=== PATIENT | female | born 1945 | race Caucasian/White ===

== ENCOUNTER → 2019-07-25 11:34 | Outpatient (CLI) | payer MEDICARE, MEDICAID, SELFPAY | PROVIDERS: Visit Provider Internal Medicine Adolescent Medicine | DX: Z20.828 Contact with and (suspected) exposure to other viral communicable diseases (principal) | CPT/HCPCS: 87275; 87276 ==

== ENCOUNTER 2021-01-02 14:00 | Inpatient (IN) | payer MEDICAID, MEDICARE, SELFPAY ==
[2021-01-02] VITALS (17 sets, daily range): BP systolic 72–115; BP diastolic 40–69; PULSE 69–97; RESP 17–20; TEMP 36.6–36.8; O2SAT 84–100; BMI 29.9; BMI 26.0
--- NOTE | 2021-01-02 14:15 | XR_ITS ---
PROCEDURE: XR CHEST PORTABLE CLINICAL HISTORY: cough COMPARISON: Injury FINDINGS: The cardiomediastinal silhouette and pulmonary vascularity are within normal limits. There are old appearing bilateral rib fractures. No lobar consolidation or collapse. No evidence of pneumothorax. No acute bony abnormalities. IMPRESSION: No acute findings. Dictated by: Alphonse Allen MD 01/02/2021 15:13 Alphonse Allen MD in [facility] 01/02/2021 15:13
--- NOTE | 2021-01-02 14:15 | CT_ITS ---
PROCEDURE: CT HEAD/BRAIN WO CON CLINICAL INDICATION: Weakness COMPARISON: CT HDWO CT HEAD WITHOUT CONTRAST from 07/14/2012 TECHNIQUE: Axial images obtained. All CT scans at the facility use one or more dose reduction, viz: automated exposure control, ma/kV adjustment per patient size (including targeted exams where dose is matched to indication, i.e. head), or iterative reconstruction technique. FINDINGS: No midline shift, mass effect, intracranial hemorrhage, hydrocephalus, or extra-axial fluid collection is evident. There is generalized atrophy with hypoattenuation of the periventricular white matter consistent with microangiopathic changes. The calvarium has an unremarkable appearance. There is opacification of the right mastoid sinus in the epitympanic recess. No paranasal sinus air-fluid level. IMPRESSION: 1. No acute intracranial findings. 2. Opacified right mastoid sinus suggesting underlying mastoiditis Dictated by: Alphonse Allen MD 01/02/2021 15:00 Alphonse Allen MD in [facility] 01/02/2021 15:00
--- NOTE | 2021-01-02 14:15 | XR_ITS ---
PROCEDURE: XR PELVIS 1-2V CLINICAL INDICATION: fall Pain COMPARISON: No exams were available for comparison TECHNIQUE: XR Pelvis AP View FINDINGS: No fracture or dislocation is evident. No significant degenerative change. No lytic or blastic change. IMPRESSION: No acute findings. Dictated by: Alphonse Allen MD 01/02/2021 15:12 Alphonse Allen MD in [facility] 01/02/2021 15:12
--- NOTE | 2021-01-02 14:45 | PC.NURSE ---
pt with rad
--- NOTE | 2021-01-02 14:49 | HMH.EDWEAK ---
ED Disposition Clinical Impression: Acute kidney injury Sepsis Qualifiers: Sepsis type: sepsis due to unspecified organism Sepsis acute organ dysfunction status: with acute organ dysfunction Severe sepsis acute organ dysfunction type: acute renal failure Acute renal failure type: with acute renal cortical necrosis Severe sepsis shock status: without septic shock Qualified Code(s): A41.9 - Sepsis, unspecified organism; R65.20 - Severe sepsis without septic shock; N17.1 - Acute kidney failure with acute cortical necrosis UTI (urinary tract infection) Qualifiers: Urinary tract infection type: acute cystitis Hematuria presence: with hematuria Qualified Code(s): N30.01 - Acute cystitis with hematuria Altered mental status Qualifiers: Altered mental status type: disorientation Qualified Code(s): R41.0 - Disorientation, unspecified Disposition: Admitted As Inpatient Condition on Discharge: Fair Referrals: Provider,Referral, MD [Primary Care Provider] - - Critical Care Critical Care Time: No Attestation: On 01/02/21, the high probability of a clinically significant, sudden or life threatening deterioration of the following system(s) required my full and direct attention, intervention and personal management. The time I documented below is in addition to time spent performing reported procedures but includes the following listed in this critical care notation. Medical Decision Making - Medical Records Medical records reviewed: Yes: I reviewed the patient's medical records. - Michael Inquiry Pt receiving controlled substance: No Vital Signs: 01/02/21 14:02 01/02/21 14:05 01/02/21 14:31 Temperature 98.1 F Temperature Source Oral Pulse Rate 90 84 Pulse Rate [Left Radial] 97 H Respiratory Rate 18 Blood Pressure 99/57 L 84/48 L Blood Pressure [Right Arm] 94/69 L Blood Pressure Mean 68 60 Blood Pressure Mean [Right Arm] 77 Blood Pressure Source [Right Arm] Automatic Cuff Blood Pressure Position [Right Arm] Sitting 02 Sat by Pulse Oximetry 84 L 97 98 Oxygen Delivery Method Room Air 01/02/21 15:00 01/02/21 15:30 01/02/21 16:01 Temperature Temperature Source Pulse Rate 88 84 80 Pulse Rate [Left Radial] Respiratory Rate Blood Pressure 93/59 L 72/44 L 106/54 L Blood Pressure [Right Arm] Blood Pressure Mean 70 53 71 Blood Pressure Mean [Right Arm] Blood Pressure Source [Right Arm] Blood Pressure Position [Right Arm] 02 Sat by Pulse Oximetry 99 98 100 Oxygen Delivery Method 01/02/21 16:37 01/02/21 16:51 01/02/21 17:07 Temperature Temperature Source Pulse Rate 69 73 72 Pulse Rate [Left Radial] Respiratory Rate Blood Pressure 77/52 L 83/40 L 85/55 L Blood Pressure [Right Arm] Blood Pressure Mean 58 54 65 Blood Pressure Mean [Right Arm] Blood Pressure Source [Right Arm] Blood Pressure Position [Right Arm] 02 Sat by Pulse Oximetry 100 100 100 Oxygen Delivery Method 01/02/21 17:30 01/02/21 18:00 01/02/21 18:18 Temperature Temperature Source Pulse Rate 71 76 79 Pulse Rate [Left Radial] Respiratory Rate Blood Pressure 86/51 L 82/51 L 107/59 L Blood Pressure [Right Arm] Blood Pressure Mean 60 56 75 Blood Pressure Mean [Right Arm] Blood Pressure Source [Right Arm] Blood Pressure Position [Right Arm] 02 Sat by Pulse Oximetry 100 100 100 Oxygen Delivery Method - Lab Data Lab Results 01/02/21 14:15: Specimen Source Right radial, O2 % 21%, ABG pH 7.39, ABG pCO2 49.5 H, ABG pO2 155.9 H, ABG HCO3 29.5 H, ABG Total CO2 31.0 H, ABG O2 Saturation 99, ABG Base Excess 4.6 H, Alphonse Test Acceptable 01/02/21 15:00: WBC 28.8 H*, RBC 3.55 L, Hgb 10.0 L, Hct 30.9 L, MCV 87.0, MCH 28.1, MCHC 32.3, RDW 14.7, Plt Count 536 H, MPV 7.2 L, Neut % (Auto) 82.5 H, Lymph % (Auto) 9.3 L, [place] % (Auto) 7.7, Eos % (Auto) 0.3, Baso % (Auto) 0.2, Neut # (Auto) 23.8 H, Lymph # (Auto) 2.7, [place] # (Auto) 2.2 H, Eos # (Auto) 0.1, Baso
[2021-01-02 14:55] LABS: ABG Base Excess 4.6 mmol/L (-2.4-2.3); ABG HCO3 29.5 mmhg (22.0-26.0); ABG Oxygen Saturation 99 % (90-100); ABG PCO2 49.5 mmhg (35.0-45.0); ABG PH 7.39 mmol/L (7.35-7.45); ABG PO2 155.9 mmhg (80-100)
[2021-01-02 14:57] LABS: Oxygen 21% %
[2021-01-02 14:58] LABS: Allen's Test Acceptable; Source Right Radial
[2021-01-02 15:22] LABS: Basophils # 0.1 K/mm3 (0-0.2); Basophils % 0.2 % (0.1-2.0); Chloride 93 mmol/L (98-107); Eosinophils # 0.1 K/mm3 (0.0-0.4); Eosinophils % 0.3 % (0.1-12.0); Hematocrit 30.9 % (37.0-47.0); Lymphocytes # 2.7 K/mm3 (0.7-4.5); Lymphocytes % 9.3 % (10-50); Mean Corpuscular HGB Conc 32.3 g/dL (31.8-35.4); Mean Corpuscular Hemoglobin 28.1 pg (27.0-31.2); Mean Platelet Volume 7.2 fl (7.4-10.4); Monocytes # 2.2 K/mm3 (0.1-1.0); Monocytes % 7.7 % (1.7-9.3); Neutrophils # 23.8 K/mm3 (1.8-7.8); Neutrophils % 82.5 % (37.0-80.0); Platelet Count 536 K/mm3 (142-424); Red Blood Count 3.55 M/mm3 (4.20-5.40); Red Cell Distribution Width 14.7 % (11.5-17.5); White Blood Count 28.8 K/mm3 (4.8-10.8)
[2021-01-02 15:23] LABS: Potassium 3.2 mmoL/L (3.5-5.1); Sodium 134 mmol/L (136-145)
[2021-01-02 15:25] LABS: Alanine Aminotransferase 67 U/L (12-78); Alkaline Phosphatase 132 U/L (38-126); Anion Gap 12.2 mEq/L (5-15); Aspartate Amino Transferase 55 U/L (14-36); Bilirubin,Total 0.3 mg/dl (0.2-1.3); Blood Urea Nitrogen 17 mg/dl (7-17); Carbon Dioxide 32 mmol/L (22.0-30.0); Creatinine Clearance Estimated 55 mL/min (50-200); Estimated Glomerular Filt Rate 48 ml/min (>60); GFR (African American) 58 ML/MIN (>60)
[2021-01-02 15:26] LABS: Albumin Level 3.2 g/dl (3.5-5.0); Albumin/Globulin Ratio 0.8 (1.1-1.8); Calcium 8.8 mg/dl (8.4-10.2); Globulin 3.9 g/dL (1.3-3.2); Glucose 126 mg/dl (74-100); Total Protein,Serum 7.1 g/dl (6.3-8.2)
[2021-01-02 15:30] LABS: MANUAL DIFFERENTIAL MANUAL DIFFERENTIAL (MANUAL DIFF)
[2021-01-02 15:35] LABS: NT Pro Brain Natriuretic Pep. 1620 pg/mL (0-450)
--- NOTE | 2021-01-02 15:46 | ECG_ITS ---
APPROVED REPORT Exam: Resting ECG HR:83 bpm ECG Measurements Heart Rate 83 AXES RI 198 P 49 QRSd 90 QRS -1 QT 382 T 31 QTc 448 Conclusion Normal sinus rhythm Minimal voltage criteria for LVH, may be normal variant Septal infarct, age undetermined Abnormal ECG Electronically signed by : Win Hopkins MD 01/04/2021 11:48:44
--- NOTE | 2021-01-02 15:46 | HMH.PHACONS ---
- Pharmacy Consult Date: 01/02/21 Time: 15:46 Referring provider: DR. HARMON Reason for Consult:: VANCOMYCIN DOSING Allergies and ADEs:: Allergies Allergy/AdvReac Type Severity Reaction Status Date / Time ANESTHESIA Allergy Unknown FEELS FUNNY Uncoded 05/07/17 14:42 LISINOPRIL Allergy Unknown UNKNOWN Uncoded 05/07/17 14:42 SPAGHETTI SAUCE Allergy Unknown Unknown Uncoded 01/02/21 15:42 allergy reaction Home Medications:: Home Medications Medication Instructions Recorded Confirmed Type ALPRAZolam [Alprazolam 0.25mg 0.25 mg PO BID 01/02/21 01/02/21 History Tab] Atorvastatin Calcium [Lipitor 20mg 20 mg PO HS 01/02/21 01/02/21 History Tab] Cefdinir [Omnicef 300mg Capsule] 300 mg pe PO BID 01/02/21 01/02/21 History Divalproex Sodium [Depakote 250mg 250 mg PO TID 01/02/21 01/02/21 History (Extended-Release) Tablet] Docusate Calcium 240 mg PO DAILY 01/02/21 01/02/21 History Levothyroxine Sodium 75 mcg PO DAILY 01/02/21 01/02/21 History [Levothyroxine] Losartan Potassium 100 mg PO DAILY 01/02/21 01/02/21 History Memantine HCl/Donepezil HCl 1 each PO DAILY 01/02/21 01/02/21 History [Namzaric 28 mg-10 mg Capsule] Mirtazapine 7.5 mg PO HS 01/02/21 01/02/21 History Multivitamin 1 each PO DAILY 01/02/21 01/02/21 History Multivitamin [Multi-Vitamin Plain] 1 each PO DAILY 01/02/21 01/02/21 History Omeprazole [Omeprazole 20mg 20 mg PO DAILY 01/02/21 01/02/21 History Capsule] Omeprazole [Omeprazole 20mg 20 mg PO HS 01/02/21 01/02/21 History Capsule] Ondansetron [Zofran 4mg ODT] 4 mg PO TIDP PRN 01/02/21 01/02/21 History Sertraline HCl 150 mg PO DAILY 01/02/21 01/02/21 History Sertraline HCl [Zoloft 100mg 100 mg PO DAILY 01/02/21 01/02/21 History tablet] Sertraline HCl [Zoloft 50mg tablet] 50 mg PO DAILY 01/02/21 01/02/21 History Height: 1.65 m Weight: 81.647 kg Laboratory Results:: Laboratory Results - last 24 hr 01/02/21 14:15: Specimen Source Right radial, O2 % 21%, ABG pH 7.39, ABG pCO2 49.5 H, ABG pO2 155.9 H, ABG HCO3 29.5 H, ABG Total CO2 31.0 H, ABG O2 Saturation 99, ABG Base Excess 4.6 H, Alphonse Test Acceptable 01/02/21 15:00: WBC 28.8 H*, RBC 3.55 L, Hgb 10.0 L, Hct 30.9 L, MCV 87.0, MCH 28.1, MCHC 32.3, RDW 14.7, Plt Count 536 H, MPV 7.2 L, Neut % (Auto) 82.5 H, Lymph % (Auto) 9.3 L, [place] % (Auto) 7.7, Eos % (Auto) 0.3, Baso % (Auto) 0.2, Neut # (Auto) 23.8 H, Lymph # (Auto) 2.7, [place] # (Auto) 2.2 H, Eos # (Auto) 0.1, Baso # (Auto) 0.1 01/02/21 15:00: Sodium 134 L, Potassium 3.2 L, Chloride 93 L, Carbon Dioxide 32 H, Anion Gap 12.2, BUN 17, Creatinine 1.10 H, Estimated Creat Clear 55, Estimated GFR 48 L, Est GFR ( Amer) 58 L, Glucose 126 H, Calcium 8.8, Total Bilirubin 0.3, AST 55 H, ALT 67, Alkaline Phosphatase 132 H, NT-Pro-B Natriuret Pep 1620 H, Total Protein 7.1, Albumin 3.2 L, Globulin 3.9 H, Albumin/Globulin Ratio 0.8 L Assessment and Plan - Assessment and plan all Dx Assessment and Plan for all problems:: Pharmacokinetic dosing service Objective: Patient: Floor: Age: 75 yo Serum creatinine: 1.10 mg/dL Height: 65.0 Inches Weight (kg): 81.6 Assessment: IBW (kg): 57.00 Dosing wt(kg): 81.6 Estimated Creatinine clearance (ml/min): 38.5 CRCL method: Cockcroft and Gault using ibw(default). Drug selected: Vancomycin Loading dose (mg): Vd (liters): 57.1 (factor used: 0.7 L/kg) Franco (hr-1): 0.036 Half life (hrs): 19.25 CLvanco=?? 2.056 L/hr Recommended dose: 1250 mg Interval: 24 hrs Infusion time (hrs): 2.0 Predicted peak (mcg/mL): 36.5 Predicted trough (mcg/mL): 16.53 Total body weight is being used for vancomycin dosing. Recommendations: Give Vancomycin 1250 mg q 24 hrs with an expected Cpeak of 36.5 mcg/ml and an expected Ctrough of
[2021-01-02 15:54] LABS: Troponin I < 0.01 ng/ml (0.00-0.034)
[2021-01-02 16:01] LABS: Coronavirus 19, PCR Not Detected (NotDetected); Influenza A, PCR Not Detected (NotDetected); Influenza B, PCR Not Detected (NotDetected)
[2021-01-02 16:15] LABS: Lactic Acid 8.9 mmol/L (0.7-2.1)
--- NOTE | 2021-01-02 16:15 | PC.NURSE ---
Critical lactic notified to
[2021-01-02 16:36] LABS: Lymphocytes % 10 % (10-50); Monocytes % 11 % (2-9); Neutrophils % 78 % (42-76); Total Cells Counted 100
[2021-01-02 16:37] LABS: Anisocytosis 1+; Hypochromasia 1+; Platelet Estimate Normal
[2021-01-02 16:41] LABS: Microscopic, Urine URINE MICROSCOPIC (MICROSCOPIC)
[2021-01-02 16:43] LABS: Appearance,Urine SL CLOUDY (Clear); Bilirubin,Urine Negative (Negative); Blood, Urine 1+ (Negative); Color,Urine YELLOW (Yellow); Glucose,Urine (UA) Negative (Negative); Ketones,Urine 1+ (Negative); Leukocyte Esterase,Urine 1+ (Negative); Nitrate,Urine Negative (Negative); Protein,Urine Negative (Negative); Urobilinogen,Urine 0.2 EU/dl (0.2)
[2021-01-02 16:58] LABS: Bacteria,Urine 3+ /lpf
--- NOTE | 2021-01-02 18:27 | PC.NURSE ---
Pt bp improved at this time. MD states to have levophed at bs but to hold starting to recheck bp and see if it stays at the present reading.
--- NOTE | 2021-01-02 18:50 | PC.NURSE ---
BED ASSIGNMENT REQUESTED, ROOM 208 ALL STAFF NOTIFIED
[2021-01-02 18:59] LABS: Troponin I < 0.01 ng/ml (0.00-0.034)
[2021-01-02 20:02] LABS: Reflex Lactic Add Lactic Reflex
--- NOTE | 2021-01-02 20:26 | HMH.SEPSISRE ---
H Tissue Perfusion Eval Sepsis Re-Evaluation Performed: Yes Date Performed: 01/02/21 Time Performed: 20:00
[2021-01-02 21:07] LABS: Troponin I < 0.01 ng/ml (0.00-0.034)
--- NOTE | 2021-01-02 21:15 | PC.NURSE ---
patient up to floor via stretcher.
[2021-01-02 21:52] LABS: Lactic Acid Follow Up (RFLX 1) 0.7 mmol/L (0.7-2.1)
[2021-01-03] VITALS (13 sets, daily range): BP systolic 90–125; BP diastolic 49–67; PULSE 66–89; RESP 16–20; TEMP 36.4–37; O2SAT 94–100; BMI 26.9
--- NOTE | 2021-01-03 03:17 | PC.NURSE ---
She is alert to her name and birthday. She is L[place]. Continues on 4LPM n/c. NSR on telemetry. Voiding per dilcia.
[2021-01-03 06:52] LABS: Chloride 98 mmol/L (98-107); Potassium 3.3 mmoL/L (3.5-5.1); Sodium 136 mmol/L (136-145)
[2021-01-03 06:53] LABS: Basophils % 0.1 % (0.1-2.0); Eosinophils # 0.1 K/mm3 (0.0-0.4); Eosinophils % 0.3 % (0.1-12.0); Hematocrit 27.6 % (37.0-47.0); Lymphocytes # 1.8 K/mm3 (0.7-4.5); Lymphocytes % 10.5 % (10-50); Mean Corpuscular HGB Conc 31.5 g/dL (31.8-35.4); Mean Corpuscular Hemoglobin 28.1 pg (27.0-31.2); Mean Corpuscular Volume 89.4 fl (81-99); Mean Platelet Volume 7.4 fl (7.4-10.4); Monocytes # 1.4 K/mm3 (0.1-1.0); Monocytes % 8.1 % (1.7-9.3); Neutrophils # 13.7 K/mm3 (1.8-7.8); Neutrophils % 80.9 % (37.0-80.0); Platelet Count 460 K/mm3 (142-424); Red Blood Count 3.09 M/mm3 (4.20-5.40); White Blood Count 16.9 K/mm3 (4.8-10.8)
[2021-01-03 06:54] LABS: MANUAL DIFFERENTIAL MANUAL DIFFERENTIAL (MANUAL DIFF)
[2021-01-03 06:55] LABS: Alanine Aminotransferase 59 U/L (12-78); Albumin Level 2.7 g/dl (3.5-5.0); Albumin/Globulin Ratio 0.8 (1.1-1.8); Alkaline Phosphatase 102 U/L (38-126); Anion Gap 9.3 mEq/L (5-15); Aspartate Amino Transferase 65 U/L (14-36); Bilirubin,Total 0.2 mg/dl (0.2-1.3); Blood Urea Nitrogen 16 mg/dl (7-17); Carbon Dioxide 32 mmol/L (22.0-30.0); Creatinine Clearance Estimated 54 mL/min (50-200); Estimated Glomerular Filt Rate 70 ml/min (>60); GFR (African American) 84 ML/MIN (>60); Globulin 3.5 g/dL (1.3-3.2); Total Protein,Serum 6.2 g/dl (6.3-8.2)
[2021-01-03 06:56] LABS: Calcium 8.5 mg/dl (8.4-10.2); Glucose 110 mg/dl (74-100)
--- NOTE | 2021-01-03 07:37 | HMH.HP ---
*Admission Date: 01/02/21 *Chief complaint: encephalopathy *History of present illness: Ms. Quintana is a 75-year-old female sent to the emergency department [facility]. She has a long history of dementia, along with other chronic comorbidities (see history that follows). She was sent from her jail due to worsening confusion from baseline over the past several days. Per ER documentation she had been refusing to get out of bed. Apparently they found her on the floor earlier yesterday. There was no witnessed fall. Patient did not complain of any pain anywhere. However the nursing staff states that she has been more confused than normal. When EMS initially arrived, she was slightly hypoxic, however did place her on some nasal cannula oxygen which improved rapidly. She denies any chest pain or shortness of breath. No chest pain or or palpitations. Denies any headache or change in vision. No focal weakness. No fevers or chills. No abdominal pain or vomiting. On assessment this morning, she appears more alert. Is answering questions appropriately. Appears to be hard of hearing. Complaining of some mild nausea and abdominal discomfort. States she has not pooped since yesterday. Afebrile and hemodynamically stable this morning. [facility] History I have reviewed the patient's past medical history: Yes Medical History: Denies:: Cancer, Diabetes Mellitus Type 1, Diabetes Mellitus Type 2, MRSA *Have you ever received a pneumonia vaccine?: Yes *Have you received a flu vaccine this season?: No Other Medical History: Reports: Hypothyroidism Other Surgeries: Yes: No Previous Surgery Amputation: No - *Social History Smoking Status: Unknown if ever smoked Alcohol Intake: never *Occupational Status:: retired Housing: jail Household Members: family *Travel in the last 8 weeks: None Family Hx:: Unable to obtain Review of Systems - Review of Systems Review of systems:: pertinent systems reviewed and negative unless documented below (14 point review of systems performed, pertinent positives and negatives as per HPI) - *Neurologic Reports weakness, Denies headache(s) Meds Home Medications Medication Instructions Recorded Confirmed Type Atorvastatin Calcium [Lipitor 20mg 20 mg PO HS 01/02/21 01/02/21 History Tab] Divalproex Sodium [Depakote 250mg 250 mg PO TID 01/02/21 01/02/21 History (Extended-Release) Tablet] Docusate Calcium 240 mg PO DAILY 01/02/21 01/02/21 History Levothyroxine Sodium 75 mcg PO DAILY 01/02/21 01/02/21 History [Levothyroxine] Losartan Potassium 100 mg PO DAILY 01/02/21 01/02/21 History Memantine HCl/Donepezil HCl 1 cap PO HS 01/02/21 01/03/21 History [Namzaric 28 mg-10 mg Capsule] Mirtazapine 7.5 mg PO HS 01/02/21 01/02/21 History Multivitamin [Multi-Vitamin Plain] 1 each PO DAILY 01/02/21 01/02/21 History Omeprazole [Omeprazole 20mg 20 mg PO HS 01/02/21 01/02/21 History Capsule] Sertraline HCl 150 mg PO DAILY 01/02/21 01/02/21 History ALPRAZolam [Xanax 0.5mg tab] 0.5 mg PO BID 01/03/21 01/03/21 History Acetaminophen 1,000 mg PO Q8HP PRN 01/03/21 01/03/21 History Carboxymethylcellulose Sodium 1 drp EYE-BOTH BID 01/03/21 01/03/21 History [Lubricating Plus] Lactulose [Enulose] 15 ml PO DAILYP PRN 01/03/21 01/03/21 History Mag Carb/Aluminum Hydrox/Algin 30 ml PO Q6HP PRN 01/03/21 01/03/21 History [Acid Gone Antacid Liquid] Allergies Allergy/AdvReac Type Severity Reaction Status Date / Time lisinopril Allergy Unknown Unknown Verified 01/03/21 08:24 allergy reaction Anesthetics - Amide Type - AdvReac Unknown Other Verified 01/03/21 08:24 Select A Anesthetics - Dottie Type- AdvReac Unknown Other Verified 01/03/21 08:24 Parabens SPAGHETTI SAUCE Allergy Unknown Unknown Uncoded 01/02/21 15:42 allergy reaction Exam Vital signs and Labs for Last 24 Hours: Temp Pulse Resp BP Pulse Ox 98.0 F 76
--- NOTE | 2021-01-03 07:52 | HMH.PHAVTE ---
[facility] Pharmacy VTE Monitoring - Patient Demographics Admission date: 01/02/21 Report Date: 01/03/21 Time: 07:52 Allergies/Adverse Reactions: Patient Allergies ANESTHESIA Allergy (Unknown, Uncoded 05/07/17 14:42) FEELS FUNNY LISINOPRIL Allergy (Unknown, Uncoded 05/07/17 14:42) UNKNOWN SPAGHETTI SAUCE Allergy (Unknown, Uncoded 01/02/21 15:42) Unknown allergy reaction Height: 1.65 m Weight: 73.142 kg Patient Problems: Current Active Problems Sepsis (Acute) UTI (urinary tract infection) (Acute) Altered mental status (Acute) Acute kidney injury (Acute) - VTE Risk Labs: VTE Related Lab Results Hgb 10.0 g/dL (12.2-16.2) L 01/02/21 15:00 Hct 27.6 % (37.0-47.0) L 01/03/21 06:26 Plt Count 460 K/mm3 (142-424) H 01/03/21 06:26 BUN 16 mg/dl (7-17) 01/03/21 06:26 Creatinine 0.80 mg/dl (0.52-1.04) D 01/03/21 06:26 Estimated Creat Clear 54 mL/min (50-200) 01/03/21 06:26 Was VTE Risk Assessment Performed: No VTE Score: 4 VTE Risk Level: Low Risk - Prophylaxis VTE Prophylaxis Ordered?: Yes Types of VTE Prophylaxis: TEDS Knee High, Pharmacological Location of Applied Device: Bilateral Lower Extremeties Pharmacologic Type: Heparin
--- NOTE | 2021-01-03 08:50 | HMH.PHAINT ---
MEDICATION RECONCILIATION COMPLETE USING MAR FROM [facility].
[2021-01-03 08:53] LABS: Hypochromasia 1+; Lymphocytes % 11 % (10-50); Monocytes % 6 % (2-9); Neutrophils % 83 % (42-76); Platelet Estimate Normal; Total Cells Counted 100
[2021-01-03 09:13] LABS: Hemoglobin 8.7 g/dL (12.2-16.2)
--- NOTE | 2021-01-03 11:18 | PC.NURSE ---
Levophed gtt off @ 1110, BP @ this time 132/91. Pt sitting up in recliner, no complaints voiced.
--- NOTE | 2021-01-03 13:09 | SW/DCPLANNER ---
Addendum entered by Jacqueline Rose 01/04/21 10:00: I have notified Hedy with [facility] that this patient will return today. Patient information has been faxed. Original Note: This patient currently resides at [facility]. I spoke with Hedy from [facility] and she has stated that patient is [facility] level of care. I will follow up with Hedy once patient is medically stable for discharge.
[2021-01-04] VITALS: BP 141/63; PULSE 80; PULSE 87; RESP 17; TEMP 37.3; O2SAT 95
[2021-01-04 04:00] VITALS: BP 149/75; PULSE 80; PULSE 90; RESP 20; TEMP 37.1; O2SAT 95
--- NOTE | 2021-01-04 04:05 | PC.NURSE ---
Pt is A/O to name and birthday. Pt was very pleasant this shift, and slept well. Pt remains 2L NC with stats >90%. VSS, call light within reach, no concerns at this time.
[2021-01-04 05:00] VITALS: BMI 27.0
[2021-01-04 08:00] VITALS: BP 119/58; PULSE 100; PULSE 90; RESP 18; TEMP 36.8; O2SAT 92
--- NOTE | 2021-01-04 08:32 | HMH.DCSUM ---
General - General Admission date:: 01/02/21 Discharge date: 01/04/21 HPI HPI: Ms. Quintana is a 75-year-old female sent to the emergency department for evaluation from her snf. She has a long history of dementia, along with other chronic comorbidities (see history that follows). She was sent from her snf due to worsening confusion from baseline over the past several days. Per ER documentation she had been refusing to get out of bed. Apparently they found her on the floor earlier yesterday. There was no witnessed fall. Patient did not complain of any pain anywhere. However the nursing staff states that she has been more confused than normal. When EMS initially arrived, she was slightly hypoxic, however did place her on some nasal cannula oxygen which improved rapidly. She denies any chest pain or shortness of breath. No chest pain or or palpitations. Denies any headache or change in vision. No focal weakness. No fevers or chills. No abdominal pain or vomiting. On assessment this morning, she appears more alert. Is answering questions appropriately. Appears to be hard of hearing. Complaining of some mild nausea and abdominal discomfort. States she has not pooped since yesterday. Afebrile and hemodynamically stable this morning. Hospital Course Hospital Course: Patient was admitted as noted, placed on broad-spectrum antibiotics. Improved over the next 12 hours, this morning she is continued to improve, is pleasant, talkative, hard of hearing but has no complaints, ate well this morning. Labs have improved. Cultures so far are negative but final results are pending. Given her stability she is able to be transferred back to [facility] today we will do Augmentin to replace her broad-spectrum antibiotics. We will follow her up on her regular snf rounds. Objective Vital signs: Temp Pulse Resp BP Pulse Ox 98.3 F 90 18 119/58 L 92 L 01/04/21 08:00 01/04/21 08:00 01/04/21 08:00 01/04/21 08:00 01/04/21 08:00 no acute distress - *Routine HEENT Exam Head: Present: normocephalic Eye: Present: EOMI, PERRL ENT: Present: mucous membranes moist - *Routine Neck Exam Present: supple - *Routine Respiratory Exam Present: CTA bilaterally - *Routine Cardiovascular Exam Present: RRR - *Routine Abdominal Exam Present: soft, normoactive bowel sounds. Absent: tenderness - *Routine Extremities Exam Absent: cyanosis, clubbing, edema - *Routine Skin Exam Present: warm. Absent: rash - Detailed Eye Exam Eyelids: Bilateral normal inspection Results Labs on day of discharge: Labs from last 24 hours 01/03/21 06:26 Hgb 8.7 L D Total Counted 100 Neutrophils % (Manual) 83 H Lymphocytes % (Manual) 11 Monocytes % (Manual) 6 Platelet Estimate Normal Hypochromasia 1+ Preliminary micro results at discharge 01/02/21 16:00 Urine Culture - Preliminary Urine,Clean Catch DS: Diagnosis - Discharge Diagnosis (1) Sepsis Status: Resolved (2) Acute kidney injury Status: Resolved (3) Altered mental status Status: Chronic (4) UTI (urinary tract infection) Status: Acute (5) Hypokalemia Status: Resolved (6) Dementia Status: Chronic Discharge Plan - Patient Discharge Instructions ACTIVITY: Continue current activity DIET: continue same diet Patient Instructions: Urinary Tract Infection, Acute Kidney Injury, DI for Sepsis -- Adult, DI for Altered Mental Status - Follow up Plan Disposition: [facility] Condition at discharge:: Improved Home Medications: Home Medications Medication Instructions Recorded Confirmed Type Atorvastatin Calcium [Lipitor 20mg 20 mg PO HS 01/02/21 01/02/21 History Tab] Divalproex Sodium [Depakote 250mg 250 mg PO TID 01/02/21 01/02/21 History (Extended-Release) Tablet] Docusate Calcium 240 mg PO DAILY 01/02/21 01/02/21 History Levothyroxine Sodium 75 mcg PO DAILY
[2021-01-04 08:39] LABS: Basophils % 0.2 % (0.1-2.0); Eosinophils # 0.1 K/mm3 (0.0-0.4); Eosinophils % 0.5 % (0.1-12.0); Hematocrit 26.5 % (37.0-47.0); Hemoglobin 8.5 g/dL (12.2-16.2); Lymphocytes # 1.7 K/mm3 (0.7-4.5); Lymphocytes % 13.9 % (10-50); Mean Corpuscular Hemoglobin 28.4 pg (27.0-31.2); Mean Corpuscular Volume 88.8 fl (81-99); Mean Platelet Volume 7.3 fl (7.4-10.4); Monocytes # 0.9 K/mm3 (0.1-1.0); Monocytes % 7.4 % (1.7-9.3); Neutrophils # 9.6 K/mm3 (1.8-7.8); Platelet Count 420 K/mm3 (142-424); Red Blood Count 2.99 M/mm3 (4.20-5.40); Red Cell Distribution Width 14.8 % (11.5-17.5); White Blood Count 12.3 K/mm3 (4.8-10.8)
[2021-01-04 08:43] LABS: Chloride 99 mmol/L (98-107); Sodium 136 mmol/L (136-145)
[2021-01-04 08:44] LABS: Potassium 3.4 mmoL/L (3.5-5.1)
[2021-01-04 08:46] LABS: Blood Urea Nitrogen 11 mg/dl (7-17); Creatinine Clearance Estimated 55 mL/min (50-200); Estimated Glomerular Filt Rate 81 ml/min (>60); GFR (African American) 98 ML/MIN (>60)
[2021-01-04 08:47] LABS: Anion Gap 8.4 mEq/L (5-15); Calcium 8.2 mg/dl (8.4-10.2); Carbon Dioxide 32 mmol/L (22.0-30.0); Glucose 93 mg/dl (74-100)
== END 2021-01-04 12:02 | DRG 872 ==
LOC: ER 18:38 → 2ND 19:15
PROVIDERS: Admitting Provider Family Medicine; Emergency Provider Emergency Medicine; Visit Provider Internal Medicine Adolescent Medicine
DX: A41.9 Sepsis, unspecified organism (principal); N17.9 Acute kidney failure, unspecified; G93.40 Encephalopathy, unspecified; N30.01 Acute cystitis with hematuria; Z20.822 Contact with and (suspected) exposure to COVID-19; R29.6 Repeated falls; E03.9 Hypothyroidism, unspecified; R65.20 Severe sepsis without septic shock; E87.6 Hypokalemia; F03.90 Unspecified dementia, unspecified severity, without behavioral disturbance, psychotic disturbance, mood disturbance, and anxiety
CPT/HCPCS: 36415; 70450; 71045; 72170; 80048; 80053; 81001; 82803; 83605; 83880; 84484; 85007; 85025; 87040; 87077; 87086; 87088; 87186; 93005; 94760; 94761; 96365; 96366; 96367; 99285; J2405; J2543; J3370; U0003

== ENCOUNTER → 2021-01-19 18:32 | Outpatient (CLI) | payer MEDICARE, MEDICAID, SELFPAY ==
[2021-01-19 18:45] LABS: Basophils # 0.1 K/mm3 (0-0.2); Basophils % 0.4 % (0.1-2.0); Eosinophils # 0.1 K/mm3 (0.0-0.4); Eosinophils % 0.3 % (0.1-12.0); Hematocrit 32.6 % (37.0-47.0); Lymphocytes # 0.7 K/mm3 (0.7-4.5); Lymphocytes % 4.3 % (10-50); Mean Corpuscular HGB Conc 30.7 g/dL (31.8-35.4); Mean Corpuscular Hemoglobin 29.6 pg (27.0-31.2); Mean Corpuscular Volume 96.5 fl (81-99); Mean Platelet Volume 8.3 fl (7.4-10.4); Monocytes # 0.6 K/mm3 (0.1-1.0); Monocytes % 3.8 % (1.7-9.3); Neutrophils # 15.2 K/mm3 (1.8-7.8); Neutrophils % 91.1 % (37.0-80.0); Platelet Count 483 K/mm3 (142-424); Red Blood Count 3.38 M/mm3 (4.20-5.40); Red Cell Distribution Width 15.6 % (11.5-17.5); White Blood Count 16.7 K/mm3 (4.8-10.8)
[2021-01-19 18:57] LABS: MANUAL DIFFERENTIAL MANUAL DIFFERENTIAL (MANUAL DIFF)
[2021-01-19 19:20] LABS: Lymphocytes % 4 % (10-50); Monocytes % 4 % (2-9); Neutrophils % 92 % (42-76); Platelet Estimate Slight Increase; Total Cells Counted 100
[2021-01-19 19:21] LABS: Hypochromasia 2+
[2021-01-19 19:27] LABS: Chloride 95 mmol/L (98-107)
[2021-01-19 19:28] LABS: Potassium 4.7 mmoL/L (3.5-5.1); Sodium 139 mmol/L (136-145)
[2021-01-19 19:31] LABS: Anion Gap 18.7 mEq/L (5-15); Blood Urea Nitrogen 13 mg/dl (7-17); Calcium 9.2 mg/dl (8.4-10.2); Carbon Dioxide 30 mmol/L (22.0-30.0); Estimated Glomerular Filt Rate 97 ml/min (>60); GFR (African American) 117 ML/MIN (>60); Glucose 89 mg/dl (74-100)
== END ==
PROVIDERS: Visit Provider Nurse Practitioner Family
DX: R11.10 Vomiting, unspecified (principal); R19.7 Diarrhea, unspecified
CPT/HCPCS: 80048; 85007; 85025; 87493

== ENCOUNTER → 2021-01-20 17:01 | Outpatient (CLI) | payer MEDICARE, MEDICAID, SELFPAY ==
[2021-01-20 17:06] LABS: Microscopic, Urine URINE MICROSCOPIC (MICROSCOPIC)
[2021-01-21 00:18] LABS: Appearance,Urine SL CLOUDY (Clear); Blood, Urine Negative (Negative); Color,Urine DK YELLOW (Yellow); Glucose,Urine (UA) Negative (Negative); Ketones,Urine TRACE (Negative); Leukocyte Esterase,Urine Negative (Negative); Nitrate,Urine Negative (Negative); PH,Urine 5.5 (5.0-8.5); Protein,Urine Negative (Negative); Specific Gravity, Urine 1.025 (1.005-1.030); Urobilinogen,Urine 0.2 EU/dl (0.2)
[2021-01-21 00:22] LABS: Bilirubin,Urine 1+ (Negative)
[2021-01-21 00:23] LABS: Bacteria,Urine 2+ /lpf
== END ==
PROVIDERS: Visit Provider Nurse Practitioner Family
DX: R82.90 Unspecified abnormal findings in urine (principal)
CPT/HCPCS: 81001; 87086

== ENCOUNTER → 2021-03-04 15:05 | Outpatient (CLI) | payer MEDICARE, MEDICAID, SELFPAY ==
[2021-03-04 15:45] LABS: Basophils # 0.1 K/mm3 (0-0.2); Basophils % 0.9 % (0.1-2.0); Eosinophils # 0.1 K/mm3 (0.0-0.4); Eosinophils % 1.1 % (0.1-12.0); Hematocrit 34.2 % (37.0-47.0); Hemoglobin 10.8 g/dL (12.2-16.2); Lymphocytes # 2.9 K/mm3 (0.7-4.5); Lymphocytes % 22.8 % (10-50); Mean Corpuscular HGB Conc 31.7 g/dL (31.8-35.4); Mean Corpuscular Hemoglobin 30.8 pg (27.0-31.2); Mean Corpuscular Volume 97.3 fl (81-99); Mean Platelet Volume 9.8 fl (7.4-10.4); Monocytes # 0.9 K/mm3 (0.1-1.0); Monocytes % 7.4 % (1.7-9.3); Neutrophils # 8.6 K/mm3 (1.8-7.8); Neutrophils % 67.8 % (37.0-80.0); Platelet Count 373 K/mm3 (142-424); Red Blood Count 3.52 M/mm3 (4.20-5.40); Red Cell Distribution Width 17.8 % (11.5-17.5); White Blood Count 12.6 K/mm3 (4.8-10.8)
== END ==
PROVIDERS: Nurse Practitioner Family; Visit Provider Internal Medicine Adolescent Medicine
DX: A41.51 Sepsis due to Escherichia coli [E. coli] (principal)
CPT/HCPCS: 85025

== ENCOUNTER → 2021-03-04 17:43 | Outpatient (CLI) | payer MEDICARE, MEDICAID, SELFPAY ==
[2021-03-04 18:23] LABS: Alanine Aminotransferase 53 U/L (12-78); Albumin Level 2.6 g/dl (3.5-5.0); Albumin/Globulin Ratio 0.7 (1.1-1.8); Alkaline Phosphatase 96 U/L (38-126); Anion Gap 6.2 mEq/L (5-15); Aspartate Amino Transferase 60 U/L (14-36); Blood Urea Nitrogen 25 mg/dl (7-17); Calcium 8.9 mg/dl (8.4-10.2); Carbon Dioxide 32 mmol/L (22.0-30.0); Chloride 101 mmol/L (98-107); Estimated Glomerular Filt Rate 81 ml/min (>60); GFR (African American) 98 ML/MIN (>60); Globulin 3.5 g/dL (1.3-3.2); Glucose 96 mg/dl (74-100); Magnesium 1.6 mg/dl (1.6-2.3); Potassium 4.2 mmoL/L (3.5-5.1); Sodium 135 mmol/L (136-145); Total Protein,Serum 6.1 g/dl (6.3-8.2)
[2021-03-04 18:25] LABS: Bilirubin,Total < 0.1 mg/dl (0.2-1.3)
== END ==
PROVIDERS: PCP Internal Medicine Adolescent Medicine; Visit Provider Internal Medicine Adolescent Medicine
DX: A41.9 Sepsis, unspecified organism (principal)
CPT/HCPCS: 80053; 83735; 85025

== ENCOUNTER 2021-03-05 09:39 | Inpatient (IN) | payer MEDICAID, MEDICARE, SELFPAY ==
[2021-03-05] VITALS (7 sets, daily range): BP systolic 98–121; BP diastolic 54–79; PULSE 86–104; RESP 16–20; TEMP 36.3–37.1; O2SAT 90–96; BMI 21.2; BMI 23.2
--- NOTE | 2021-03-05 09:54 | CT_ITS ---
PROCEDURE INFORMATION: Exam: CT Abdomen And Pelvis With Contrast Exam date and time: 03/05/2021 9:54 AM Age: 75 years old Clinical indication: Abdominal pain; Acute; Additional info: Abdominal pain and vomiting TECHNIQUE: Imaging protocol: Computed tomography of the abdomen and pelvis with contrast. Radiation optimization: All CT scans at this facility use at least one of these dose optimization techniques: automated exposure control; mA and/or kV adjustment per patient size (includes targeted exams where dose is matched to clinical indication); or iterative reconstruction. Contrast material: ISOVUE; Contrast volume: 75 ml; Contrast route: IV; COMPARISON: CR XR PELVIS 1-2V 01/02/2021 2:46 PM FINDINGS: Diaphragm: Large hiatal hernia. Liver: Normal. No mass. Gallbladder and bile ducts: Normal. No calcified stones. No ductal dilation. Pancreas: Normal. No ductal dilation. Spleen: Normal. No splenomegaly. Adrenal glands: Normal. No mass. Kidneys and ureters: Normal. No hydronephrosis. Stomach and bowel: Segment of wall thickening at the junction of the sigmoid and descending colon, consistent in appearance with acute diverticulitis. Circumscribed collection of fluid in the adjacent pericolonic tissues, consistent with abscess formation and measuring 1.9 x 1.7 cm in greatest dimension. Rectum distended to 7 cm with stool. Impaction cannot be excluded. Appendix: No evidence of appendicitis. Intraperitoneal space: Unremarkable. No free air. No significant fluid collection. Vasculature: Unremarkable. No abdominal aortic aneurysm. Lymph nodes: Unremarkable. No enlarged lymph nodes. Urinary bladder: Unremarkable as visualized. Reproductive: Unremarkable as visualized. Bones/joints: Unremarkable. No acute fracture. Soft tissues: Unremarkable. IMPRESSION: 1. Large hiatal hernia. 2. Segment of wall thickening at the junction of the sigmoid and descending colon, consistent in appearance with acute diverticulitis. 3. Circumscribed collection of fluid in the adjacent pericolonic tissues, consistent with abscess formation and measuring 1.9 x 1.7 cm in greatest dimension. As an underlying malignancy cannot be entirely excluded, a follow-up examination after a course of treatment is recommended if clinically warranted. 4. Rectum distended to 7 cm with stool. Impaction cannot be excluded.
[2021-03-05 10:07] LABS: Basophils # 0.2 K/mm3 (0-0.2); Basophils % 0.8 % (0.1-2.0); Eosinophils # 0.1 K/mm3 (0.0-0.4); Eosinophils % 0.4 % (0.1-12.0); Hematocrit 32.5 % (37.0-47.0); Hemoglobin 10.3 g/dL (12.2-16.2); Lymphocytes # 3.2 K/mm3 (0.7-4.5); Lymphocytes % 13.9 % (10-50); Mean Corpuscular HGB Conc 31.7 g/dL (31.8-35.4); Mean Corpuscular Hemoglobin 31.3 pg (27.0-31.2); Mean Corpuscular Volume 98.6 fl (81-99); Mean Platelet Volume 7.9 fl (7.4-10.4); Monocytes # 1.2 K/mm3 (0.1-1.0); Monocytes % 5.1 % (1.7-9.3); Neutrophils # 18.5 K/mm3 (1.8-7.8); Neutrophils % 79.9 % (37.0-80.0); Platelet Count 345 K/mm3 (142-424); Red Blood Count 3.29 M/mm3 (4.20-5.40); Red Cell Distribution Width 17.6 % (11.5-17.5); White Blood Count 23.1 K/mm3 (4.8-10.8)
[2021-03-05 10:09] LABS: MANUAL DIFFERENTIAL MANUAL DIFFERENTIAL (MANUAL DIFF)
[2021-03-05 10:11] LABS: Chloride 99 mmol/L (98-107); Potassium 3.9 mmoL/L (3.5-5.1); Sodium 136 mmol/L (136-145)
[2021-03-05 10:13] LABS: Alanine Aminotransferase 47 U/L (12-78); Aspartate Amino Transferase 50 U/L (14-36); Blood Urea Nitrogen 20 mg/dl (7-17); Estimated Glomerular Filt Rate 81 ml/min (>60); GFR (African American) 98 ML/MIN (>60)
[2021-03-05 10:14] LABS: Albumin Level 2.8 g/dl (3.5-5.0); Albumin/Globulin Ratio 0.7 (1.1-1.8); Alkaline Phosphatase 103 U/L (38-126); Anion Gap 10.9 mEq/L (5-15); Bilirubin,Total 0.1 mg/dl (0.2-1.3); Calcium 9.2 mg/dl (8.4-10.2); Carbon Dioxide 30 mmol/L (22.0-30.0); Glucose 109 mg/dl (74-100); Lipase 74 U/L (23-300); Total Protein,Serum 6.8 g/dl (6.3-8.2)
[2021-03-05 10:18] LABS: Lactic Acid 0.7 mmol/L (0.7-2.1)
[2021-03-05 10:21] LABS: Lymphocytes % 20 % (10-50); Monocytes % 7 % (2-9); Neutrophils % 73 % (42-76); Platelet Estimate Normal; RBC Morphology Normal; Total Cells Counted 100
[2021-03-05 11:47] LABS: Microscopic, Urine URINE MICROSCOPIC (MICROSCOPIC)
[2021-03-05 11:48] LABS: Appearance,Urine TURBID (Clear); Bilirubin,Urine Negative (Negative); Blood, Urine 3+ (Negative); Color,Urine STRAW (Yellow); Glucose,Urine (UA) Negative (Negative); Ketones,Urine TRACE (Negative); Leukocyte Esterase,Urine 2+ (Negative); Nitrate,Urine POSITIVE (Negative); PH,Urine 8.5 (5.0-8.5); Protein,Urine 2+ (Negative); Urobilinogen,Urine 0.2 EU/dl (0.2)
[2021-03-05 11:52] LABS: Amorphous Sediment,Urine 3+ /lpf; Bacteria,Urine 2+ /lpf; RBC,Urine 50-100 #/hpf (0-3); WBC,Urine TNTC #/hpf (0-3)
--- NOTE | 2021-03-05 12:16 | PC.NURSE ---
asked lab to draw blood on pt, spoke with dena
--- NOTE | 2021-03-05 12:20 | PC.NURSE ---
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 justice who is [employer] for dr. turner
[2021-03-05 12:23] LABS: Coronavirus 19, PCR Not Detected (NotDetected); Influenza A, PCR Not Detected (NotDetected); Influenza B, PCR Not Detected (NotDetected)
--- NOTE | 2021-03-05 12:33 | PC.NURSE ---
lab just finished up blood cultures prior to atb started
--- NOTE | 2021-03-05 12:40 | PC.NURSE ---
DAYANNA BONNER speaking Dr. Jameson
--- NOTE | 2021-03-05 13:22 | PC.NURSE ---
Called and spoke with lissa GUEVARA to give report
--- NOTE | 2021-03-05 14:08 | PC.NURSE ---
pt arrived to the floor at this time
--- NOTE | 2021-03-05 14:55 | PC.NURSE ---
pt unable to answer some admission questions r/t mental status. Patient very hard of hearing
--- NOTE | 2021-03-05 17:51 | PC.WOUNDNOTE ---
Stage 2 ulceration noted to RT buttock, Stage 2 ulceration noted to coccyx, Redness/Excoriation noted to bilateral buttocks
--- NOTE | 2021-03-06 00:41 | HMH.EDABDPAI ---
ED Disposition Clinical Impression: Diverticulitis UTI (urinary tract infection) Qualifiers: Urinary tract infection type: acute cystitis Hematuria presence: without hematuria Qualified Code(s): N30.00 - Acute cystitis without hematuria Disposition: Admitted As Inpatient Condition on Discharge: Good Time of Disposition: 10:50 - Critical Care Critical Care Time: Yes Attestation: On 03/05/21, the high probability of a clinically significant, sudden or life threatening deterioration of the following system(s) required my full and direct attention, intervention and personal management. The time I documented below is in addition to time spent performing reported procedures but includes the following listed in this critical care notation. Vital system(s) involved:: Shock (Septic) My critical care processes included: Assessment & monitoring of V/S, Initial and Re-exams, Data Review/Interpretation, Medication Orders and management Medical Decision Making - Medical Records Medical records reviewed: Yes: I reviewed the patient's medical records. - Michael Inquiry Pt receiving controlled substance: No Michael was queried for this patient: No Vital Signs: 03/05/21 09:40 03/05/21 10:30 03/05/21 12:00 Temperature 98.8 F Temperature Source Oral Pulse Rate 94 H 92 H Pulse Rate [Right Radial] 104 H Respiratory Rate 18 20 18 Blood Pressure 106/60 L 121/69 Blood Pressure [Right Arm] 98/59 L Blood Pressure Mean 66 83 Blood Pressure Mean [Right Arm] 72 Blood Pressure Source [Right Arm] Automatic Cuff Blood Pressure Position [Right Arm] Supine 02 Sat by Pulse Oximetry 90 L 90 L 95 Oxygen Delivery Method Room Air Room Air Room Air 03/05/21 14:25 Temperature 97.9 F Temperature Source Oral Pulse Rate Pulse Rate [Right Radial] 95 H Respiratory Rate 18 Blood Pressure Blood Pressure [Right Arm] 102/54 L Blood Pressure Mean Blood Pressure Mean [Right Arm] 70 Blood Pressure Source [Right Arm] Automatic Cuff Blood Pressure Position [Right Arm] 02 Sat by Pulse Oximetry 95 Oxygen Delivery Method Room Air - Lab Data Lab results reviewed: Yes: I reviewed the patient's lab results. Lab Results 03/05/21 09:52: WBC 23.1 H* D, RBC 3.29 L, Hgb 10.3 L, Hct 32.5 L, MCV 98.6, MCH 31.3 H, MCHC 31.7 L, RDW 17.6 H, Plt Count 345, MPV 7.9, Neut % (Auto) 79.9, Lymph % (Auto) 13.9, [place] % (Auto) 5.1, Eos % (Auto) 0.4, Baso % (Auto) 0.8, Neut # (Auto) 18.5 H, Lymph # (Auto) 3.2, [place] # (Auto) 1.2 H, Eos # (Auto) 0.1, Baso # (Auto) 0.2, Total Counted 100, Neutrophils % (Manual) 73, Lymphocytes % (Manual) 20, Monocytes % (Manual) 7, Platelet Estimate Normal, RBC Morphology Normal 03/05/21 09:52: Sodium 136, Potassium 3.9, Chloride 99, Carbon Dioxide 30, Anion Gap 10.9, BUN 20 H, Creatinine 0.70, Estimated GFR 81, Est GFR ( Amer) 98, Glucose 109 H, Calcium 9.2, Total Bilirubin 0.1 L, AST 50 H, ALT 47, Alkaline Phosphatase 103, Total Protein 6.8, Albumin 2.8 L, Globulin 4.0 H, Albumin/Globulin Ratio 0.7 L, Lipase 74 03/05/21 10:03: Lactate 0.7 03/05/21 11:42: Urine Color Straw, Urine Appearance Turbid, Urine pH 8.5, Ur Specific [place] 1.020, Urine Protein 2+, Urine Glucose (UA) Negative, Urine Ketones Trace, Urine Blood 3+, Urine Nitrate Positive, Urine Bilirubin Negative, Urine Urobilinogen 0.2, Ur Leukocyte Esterase 2+ A, Urine RBC 50-100, Urine WBC Tntc, Ur Squamous Epith Cells 5-10, Amorphous Sediment 3+, Urine Bacteria 2+ 03/05/21 12:20: SARS-CoV-2 (PCR) Not detected, Influenza A Untype (PCR) Not detected, Influenza Type B (PCR) Not detected Result diagrams: 03/05/21 09:52 03/05/21 09:52 Orders (Tests/Meds): ED MEDICATIONS Generic Name Dose Route Start Last Admin Trade Name Freq PRN Reason Stop Dose Admin Piperacillin Sod/Tazobactam 50 mls @ 100 mls/hr 03/05/21 17:00 03/05/21 23:06 Sod 3.375 gm/ Sodium Chloride IV 03/19/21 16:59 100 mls/hr Q6 BRUNILDA Administration Metronidazole 500 mg in 100 mls @ 100 ml
--- NOTE | 2021-03-06 03:38 | PC.NURSE ---
SHIFT SUMMARY. PT HAS BEEN A+O X4 AND PLEASANT T/O SHIFT. PT IS VERY HARD OF HEARING BUT CAN HEAR BETTER ON THE LEFT SIDE. NO COMPLAINTS VOICED TO STAFF T/O SHIFT. PT IS INCONTINENT AND VOIDS PER BRIEF. BED BATH GIVEN THIS SHIFT. STAGE 2 ULCERS NOTED ON COCCYX AND RIGHT GLUTEAL. REDNESS AND EXCORIATION NOTED T/O BOTTOM. NEW DRESSING APPLIED. Q2 TURN. PT CURRENTLY RESTING IN BED. VSS. WILL CONTINUE TO MONITOR.
[2021-03-06 04:00] VITALS: BP 114/60; PULSE 85; RESP 17; TEMP 36.9; O2SAT 92
[2021-03-06 05:20] VITALS: BMI 23.8
--- NOTE | 2021-03-06 07:15 | P.CONPHA_ITS ---
[facility] Pharmacy VTE Monitoring - Patient Demographics Admission date: 03/06/21 Report Date: 03/06/21 Time: 07:15 Allergies/Adverse Reactions: Patient Allergies lisinopril Allergy (Unknown, Verified 01/03/21 08:24) Unknown allergy reaction tomato Allergy (Unknown, Verified 01/03/21 08:49) Unknown allergy reaction Anesthetics - Amide Type - Select A Adverse Reaction (Unknown, Verified 01/03/21 08:24) Other Anesthetics - Dottie Type- Parabens Adverse Reaction (Unknown, Verified 01/03/21 08:24) Other Height: 1.6 m Weight: 60.838 kg Patient Problems: Current Active Problems UTI (urinary tract infection) (Acute) Diverticulitis (Acute) - VTE Risk Labs: VTE Related Lab Results Hgb 10.3 g/dL (12.2-16.2) L 03/05/21 09:52 Hct 32.5 % (37.0-47.0) L 03/05/21 09:52 Plt Count 345 K/mm3 (142-424) 03/05/21 09:52 BUN 20 mg/dl (7-17) H 03/05/21 09:52 Creatinine 0.70 mg/dl (0.52-1.04) 03/05/21 09:52 Was VTE Risk Assessment Performed: Yes VTE Score: 3 VTE Risk Level: Very Low Risk - Prophylaxis VTE Prophylaxis Ordered?: Yes Types of VTE Prophylaxis: TEDS Knee High Location of Applied Device: Bilateral Lower Extremeties
--- NOTE | 2021-03-06 07:22 | HMH.PHAINT ---
MEDICATION RECONCILIATION COMPLETE USING MAR FROM LONG-TERM
--- NOTE | 2021-03-06 07:36 | SW/DCPLANNER ---
Addendum entered by Karma Soares 03/09/21 14:02: PATIENT IS RETURNING BACK TO HER CORRECTION BED TODAY... SHE WILL RETURN BACK WITH SHORT TERM IV ANTIBIOTICS. WILL RETURN VIA AMBULANCE. PATIENT IS MEDICAID HER PRIMARY INSURANCE.. Original Note: PATIENT ADMITTED TO [facility] WITH DIVERTICULITIS AND UTI... PATIENT RESIDES AT [facility] AND IS ON A MEDICAID BEDHOLD THERE.. DISPOSITION IS UNCERTAIN BUT COULD BE IN THE NEXT DAY OR TWO..
[2021-03-06 08:00] VITALS: BP 117/62; PULSE 90; RESP 18; TEMP 36.7; O2SAT 91; O2SAT 94
--- NOTE | 2021-03-06 08:30 | HMH.HP ---
*Admission Date: 03/06/21 *Chief complaint: Abdominal pain and vomiting *History of present illness: Description of Symptoms (Recalled from ER Triage Doc. by RN): From nurse Zelda pt has hx of demenia and anxiety. They said she has been vomiting for the last two days. he blood pressure was 98/65 before she left. She said that she normally has a bowel movement regularly and has not in the last two days. Pt states that her abdomen is hurting. Pt is very repeatitive with her conversation. - History of Present Illness HPI narrative: hx of demenia and anxiety. They said she has been vomiting non bloody non bilious emesis for the last two days. Her blood pressure was 98/65 before she left. She said that she normally has a bowel movement regularly and has not in the last two days. Pt states that her abdomen is hurting. Pt is very repeatitive with her conversation, which [facility] reports is per baseline. No fevers, chills, bowel changes per nursing facility. Above note per ER. Work-up in the ER revealed leukocytosis, evidence of urinary tract infection and CT scan showing diverticulitis with thickened colon and possible abscess formation. Admitted to hospital for broad-spectrum antibiotics. [facility] History I have reviewed the patient's past medical history: Yes Medical History: Denies:: Cancer, Diabetes Mellitus Type 1, Diabetes Mellitus Type 2, MRSA *Have you ever received a pneumonia vaccine?: Yes *Have you received a flu vaccine this season?: No Other Medical History: Reports: Hypothyroidism Other Surgeries: Yes: No Previous Surgery Amputation: No - *Social History Smoking Status: Unknown if ever smoked Alcohol Intake: never *Occupational Status:: retired Housing: [facility] Household Members: other *Travel in the last 8 weeks: None Family Hx:: Unable to obtain Review of Systems - Review of Systems Review of systems:: pertinent systems reviewed and negative unless documented below Meds Home Medications Medication Instructions Recorded Confirmed Type Atorvastatin Calcium [Lipitor 20mg 20 mg PO HS 01/02/21 03/05/21 History Tab] Divalproex Sodium [Depakote 250mg 250 mg PO TID 01/02/21 03/05/21 History (Extended-Release) Tablet] Docusate Calcium 240 mg PO DAILY 01/02/21 03/05/21 History Levothyroxine Sodium 75 mcg PO DAILY 01/02/21 03/05/21 History [Levothyroxine] Memantine HCl/Donepezil HCl 1 cap PO HS 01/02/21 03/05/21 History [Namzaric 28 mg-10 mg Capsule] Mirtazapine 15 mg PO HS 01/02/21 03/05/21 History Multivitamin [Multi-Vitamin Plain] 1 each PO DAILY 01/02/21 03/05/21 History Omeprazole [Omeprazole 20mg 20 mg PO HS 01/02/21 03/05/21 History Capsule] Sertraline HCl 150 mg PO DAILY 01/02/21 03/05/21 History ALPRAZolam [Xanax 0.5mg tab] 0.5 mg PO BID 01/03/21 03/05/21 History Acetaminophen 1,000 mg PO Q6HP 01/03/21 03/05/21 History Carboxymethylcellulose Sodium 1 drp EYE-BOTH BID 01/03/21 03/05/21 History [Lubricating Plus] Lactulose [Enulose] 15 ml PO DAILYP PRN 01/03/21 03/05/21 History Losartan Potassium 100 mg PO DAILY 03/06/21 03/06/21 History Nystatin [Nystatin Susp 500,000 500,000 unit PO TID 03/06/21 03/06/21 History Units/5mL Udc] Allergies Allergy/AdvReac Type Severity Reaction Status Date / Time lisinopril Allergy Unknown Unknown Verified 01/03/21 08:24 allergy reaction tomato Allergy Unknown Unknown Verified 01/03/21 08:49 allergy reaction Anesthetics - Amide Type - AdvReac Unknown Other Verified 01/03/21 08:24 Select A Anesthetics - Dottie Type- AdvReac Unknown Other Verified 01/03/21 08:24 Parabens Exam Vital signs and Labs for Last 24 Hours: Temp Pulse Resp BP Pulse Ox 98.4 F 85 17 114/60 92 L 03/06/21 04:00 03/06/21 04:00 03/06/21 04:00 03/06/21 04:00 03/06/21 04:00 Laboratory Results - last 24 hr 03/05/21 09:52: WBC 23.1 H* D, RBC 3.29 L, Hgb 10.3 L, Hct 32.5 L, MCV 98.6, MCH 31.3 H, MCHC 3
[2021-03-06 08:36] LABS: Basophils # 0.1 K/mm3 (0-0.2); Basophils % 0.4 % (0.1-2.0); Eosinophils # 0.1 K/mm3 (0.0-0.4); Eosinophils % 0.8 % (0.1-12.0); Hemoglobin 9.5 g/dL (12.2-16.2); Lymphocytes # 2.4 K/mm3 (0.7-4.5); Lymphocytes % 17.5 % (10-50); Mean Corpuscular HGB Conc 30.8 g/dL (31.8-35.4); Mean Corpuscular Hemoglobin 30.9 pg (27.0-31.2); Mean Corpuscular Volume 100.4 fl (81-99); Monocytes # 0.8 K/mm3 (0.1-1.0); Monocytes % 5.5 % (1.7-9.3); Neutrophils # 10.2 K/mm3 (1.8-7.8); Neutrophils % 75.8 % (37.0-80.0); Platelet Count 292 K/mm3 (142-424); Red Blood Count 3.09 M/mm3 (4.20-5.40); Red Cell Distribution Width 17.5 % (11.5-17.5); White Blood Count 13.5 K/mm3 (4.8-10.8)
[2021-03-06 08:43] LABS: Chloride 100 mmol/L (98-107); Potassium 3.8 mmoL/L (3.5-5.1); Sodium 137 mmol/L (136-145)
[2021-03-06 08:46] LABS: Anion Gap 13.8 mEq/L (5-15); Blood Urea Nitrogen 16 mg/dl (7-17); Carbon Dioxide 27 mmol/L (22.0-30.0); Creatinine Clearance Estimated 45 mL/min (50-200); Estimated Glomerular Filt Rate 81 ml/min (>60); GFR (African American) 98 ML/MIN (>60)
[2021-03-06 08:47] LABS: Calcium 8.9 mg/dl (8.4-10.2); Glucose 99 mg/dl (74-100)
[2021-03-06 10:14] VITALS: BMI 23.8
--- NOTE | 2021-03-06 11:56 | HMH.GSCON ---
*Admission Date: 03/06/21 *Reason for consult:: Diverticulitis with small abscess formation on CT scan *History of present illness: Patient is a 75-year-old female who is a resident of [facility] with significant dementia. History is difficult to obtain from the patient. Reportedly the patient has been having some vomiting for the past couple of days prior to admission. She had previously been moving her bowels normally but has not had a bowel movement for 2 days. She did complain of some abdominal pain. Work-up in the emergency department revealed a leukocytosis. CT scan revealed thickening of the descending colon with adjacent fluid consistent with diverticulitis with possible early abscess formation. She was admitted for inpatient management. Surgical consultation was obtained. Of note, patient did previously have colonoscopy by Dr. Pulliam years ago revealing pandiverticulosis Review of Systems - Review of Systems Review of systems:: unable to obtain [facility] History I have reviewed the patient's past medical history: Yes Medical History: Denies:: Cancer, Diabetes Mellitus Type 1, Diabetes Mellitus Type 2, MRSA *Have you ever received a pneumonia vaccine?: Yes *Have you received a flu vaccine this season?: No Other Medical History: Reports: Hypothyroidism Other Surgeries: Yes: No Previous Surgery Amputation: No - *Social History Smoking Status: Unknown if ever smoked Alcohol Intake: never *Occupational Status:: retired Housing: custodial Household Members: other *Travel in the last 8 weeks: None Family Hx:: Unable to obtain Med Home Medications Medication Instructions Recorded Confirmed Type Atorvastatin Calcium [Lipitor 20mg 20 mg PO HS 01/02/21 03/05/21 History Tab] Divalproex Sodium [Depakote 250mg 250 mg PO TID 01/02/21 03/05/21 History (Extended-Release) Tablet] Docusate Calcium 240 mg PO DAILY 01/02/21 03/05/21 History Levothyroxine Sodium 75 mcg PO DAILY 01/02/21 03/05/21 History [Levothyroxine] Memantine HCl/Donepezil HCl 1 cap PO HS 01/02/21 03/05/21 History [Namzaric 28 mg-10 mg Capsule] Mirtazapine 15 mg PO HS 01/02/21 03/05/21 History Multivitamin [Multi-Vitamin Plain] 1 each PO DAILY 01/02/21 03/05/21 History Omeprazole [Omeprazole 20mg 20 mg PO HS 01/02/21 03/05/21 History Capsule] Sertraline HCl 150 mg PO DAILY 01/02/21 03/05/21 History ALPRAZolam [Xanax 0.5mg tab] 0.5 mg PO BID 01/03/21 03/05/21 History Acetaminophen 1,000 mg PO Q6HP 01/03/21 03/05/21 History Carboxymethylcellulose Sodium 1 drp EYE-BOTH BID 01/03/21 03/05/21 History [Lubricating Plus] Lactulose [Enulose] 15 ml PO DAILYP PRN 01/03/21 03/05/21 History Losartan Potassium 100 mg PO DAILY 03/06/21 03/06/21 History Nystatin [Nystatin Susp 500,000 500,000 unit PO TID 03/06/21 03/06/21 History Units/5mL Udc] Allergies Allergy/AdvReac Type Severity Reaction Status Date / Time lisinopril Allergy Unknown Unknown Verified 01/03/21 08:24 allergy reaction tomato Allergy Unknown Unknown Verified 01/03/21 08:49 allergy reaction Anesthetics - Amide Type - AdvReac Unknown Other Verified 01/03/21 08:24 Select A Anesthetics - Dottie Type- AdvReac Unknown Other Verified 01/03/21 08:24 Parabens Exam Vital signs and Labs for Last 24 Hours: Temp Pulse Resp BP Pulse Ox 98.0 F 90 18 117/62 91 L 03/06/21 08:00 03/06/21 08:00 03/06/21 08:00 03/06/21 08:00 03/06/21 08:00 Laboratory Results - last 24 hr 03/05/21 12:20: SARS-CoV-2 (PCR) Not detected, Influenza A Untype (PCR) Not detected, Influenza Type B (PCR) Not detected 03/06/21 08:21: WBC 13.5 H D, RBC 3.09 L, Hgb 9.5 L, Hct 31.0 L, MCV 100.4 H, MCH 30.9, MCHC 30.8 L, RDW 17.5, Plt Count 292, MPV 7.0 L, Neut % (Auto) 75.8, Lymph % (Auto) 17.5, [place] % (Auto) 5.5, Eos % (Auto) 0.8, Baso % (Auto) 0.4, Neut # (Auto) 10.2 H, Lymph # (Auto) 2.4, [place] # (Auto) 0.8, Eos # (Auto) 0.1, Baso # (Auto) 0
[2021-03-06 15:29] VITALS: BP 99/57; PULSE 96; RESP 20; TEMP 36.6; O2SAT 89
--- NOTE | 2021-03-06 19:54 | PC.NURSE ---
NO ACUTE CHANGES THIS SHIFT, REMAINS AOX4, VSS, TURNED AND REPOSITIONED Q2 HRS. NO NEEDS VOICED.
[2021-03-06 20:00] VITALS: BP 146/72; PULSE 74; RESP 19; TEMP 37.2; O2SAT 94
[2021-03-07] VITALS: BP 90/59; PULSE 111; RESP 15; TEMP 36.4; O2SAT 89
[2021-03-07 04:00] VITALS: BP 126/64; PULSE 68; RESP 17; TEMP 36.4; O2SAT 92
[2021-03-07 05:01] VITALS: BMI 23.8
--- NOTE | 2021-03-07 06:42 | P.PN_ITS ---
Subjective Narrative: No new complaints. Does have abdominal soreness . Progress Note: A&P (1) Abdominal abscess Status: Acute (2) Diverticulitis Status: Acute (3) UTI (urinary tract infection) Status: Acute (4) Sepsis Status: Resolved Assessment and Plan for All Diagnoses:: Continue antibiotics. Exam Vital signs and Labs for Last 24 Hours: Temp Pulse Resp BP Pulse Ox 97.6 F 68 17 126/64 92 L 03/07/21 04:00 03/07/21 04:00 03/07/21 04:00 03/07/21 04:00 03/07/21 04:00 Laboratory Results - last 24 hr 03/06/21 08:21: WBC 13.5 H D, RBC 3.09 L, Hgb 9.5 L, Hct 31.0 L, MCV 100.4 H, MCH 30.9, MCHC 30.8 L, RDW 17.5, Plt Count 292, MPV 7.0 L, Neut % (Auto) 75.8, Lymph % (Auto) 17.5, [place] % (Auto) 5.5, Eos % (Auto) 0.8, Baso % (Auto) 0.4, Neut # (Auto) 10.2 H, Lymph # (Auto) 2.4, [place] # (Auto) 0.8, Eos # (Auto) 0.1, Baso # (Auto) 0.1 03/06/21 08:21: Sodium 137, Potassium 3.8, Chloride 100, Carbon Dioxide 27, Anion Gap 13.8, BUN 16, Creatinine 0.70, Estimated Creat Clear 45, Estimated GFR 81, Est GFR ( Amer) 98, Glucose 99, Calcium 8.9 I & O for Last 24 hours: Intake & Output 03/04/21 03/05/21 03/06/21 03/07/21 11:59 11:59 11:59 11:59 Intake Total 770 / 770 910 / 910 Balance 770 / 770 910 / 910 Weight 120 lb 134 lb 7.712 oz 134 lb 7.712 oz Microbiology Reports for the Last 24 Hours: Microbiology 03/05/21 11:40 Urine,Clean Catch Urine Culture - Preliminary 03/05/21 12:40 Blood - Abscess Blood Culture - Preliminary - *Routine Abdominal Exam Present: soft, tenderness
[2021-03-07 06:55] LABS: Basophils % 0.2 % (0.1-2.0); Eosinophils # 0.1 K/mm3 (0.0-0.4); Eosinophils % 0.5 % (0.1-12.0); Hematocrit 31.7 % (37.0-47.0); Hemoglobin 9.7 g/dL (12.2-16.2); Lymphocytes # 2.2 K/mm3 (0.7-4.5); Lymphocytes % 14.5 % (10-50); Mean Corpuscular HGB Conc 30.7 g/dL (31.8-35.4); Mean Corpuscular Hemoglobin 30.5 pg (27.0-31.2); Mean Corpuscular Volume 99.5 fl (81-99); Monocytes % 6.5 % (1.7-9.3); Neutrophils % 78.4 % (37.0-80.0); Platelet Count 310 K/mm3 (142-424); Red Blood Count 3.19 M/mm3 (4.20-5.40); Red Cell Distribution Width 17.6 % (11.5-17.5); White Blood Count 15.3 K/mm3 (4.8-10.8)
[2021-03-07 07:09] LABS: MANUAL DIFFERENTIAL MANUAL DIFFERENTIAL (MANUAL DIFF)
[2021-03-07 07:10] LABS: Chloride 104 mmol/L (98-107); Sodium 138 mmol/L (136-145)
[2021-03-07 07:11] LABS: Potassium 3.6 mmoL/L (3.5-5.1)
[2021-03-07 07:13] LABS: Blood Urea Nitrogen 11 mg/dl (7-17); Creatinine Clearance Estimated 45 mL/min (50-200); Estimated Glomerular Filt Rate 97 ml/min (>60); GFR (African American) 117 ML/MIN (>60)
[2021-03-07 07:14] LABS: Anion Gap 11.6 mEq/L (5-15); Calcium 8.7 mg/dl (8.4-10.2); Carbon Dioxide 26 mmol/L (22.0-30.0); Glucose 102 mg/dl (74-100)
[2021-03-07 08:00] VITALS: BP 119/46; PULSE 60; RESP 15; TEMP 36.6; O2SAT 92
[2021-03-07 08:21] LABS: Eosinophils % 1 % (0-3); Hypochromasia 2+; Lymphocytes % 19 % (10-50); Macrocytosis 2+; Monocytes % 4 % (2-9); Neutrophils % 76 % (42-76); Platelet Estimate Normal; Total Cells Counted 100
--- NOTE | 2021-03-07 09:24 | HMH.ACPN2 ---
Internal Medicine - PN: Subj *Date: 03/07/21 *Time: 09:24 Interval history: Made afebrile overnight. Tolerating clear liquids. No nausea or vomiting. Still has abdominal pain today. Alert on exam. Exam Vital signs and Labs for Last 24 Hours: Temp Pulse Resp BP Pulse Ox 97.8 F 60 15 119/46 L 92 L 03/07/21 08:00 03/07/21 08:00 03/07/21 08:00 03/07/21 08:00 03/07/21 08:00 Laboratory Results - last 24 hr 03/07/21 06:17: WBC 15.3 H, RBC 3.19 L, Hgb 9.7 L, Hct 31.7 L, MCV 99.5 H, MCH 30.5, MCHC 30.7 L, RDW 17.6 H, Plt Count 310, MPV 7.0 L, Neut % (Auto) 78.4, Lymph % (Auto) 14.5, [place] % (Auto) 6.5, Eos % (Auto) 0.5, Baso % (Auto) 0.2, Neut # (Auto) 12.0 H, Lymph # (Auto) 2.2, [place] # (Auto) 1.0, Eos # (Auto) 0.1, Baso # (Auto) 0.0, Total Counted 100, Neutrophils % (Manual) 76, Lymphocytes % (Manual) 19, Monocytes % (Manual) 4, Eosinophils % (Manual) 1, Platelet Estimate Normal, Hypochromasia 2+, Macrocytosis 2+ 03/07/21 06:17: Sodium 138, Potassium 3.6, Chloride 104, Carbon Dioxide 26, Anion Gap 11.6, BUN 11 D, Creatinine 0.60, Estimated Creat Clear 45, Estimated GFR 97, Est GFR ( Amer) 117, Glucose 102 H, Calcium 8.7 I & O for Last 24 hours: Intake & Output 03/04/21 03/05/21 03/06/21 03/07/21 23:59 23:59 23:59 23:59 Intake Total 410 / 410 960 / 960 430 / 430 Balance 410 / 410 960 / 960 430 / 430 Weight 59.421 kg 61 kg 61 kg Microbiology Reports for the Last 24 Hours: Microbiology 03/05/21 11:40 Urine,Clean Catch Urine Culture - Preliminary Narrative: - Constitutional no acute distress, frail - *Routine HEENT Exam Head: Present: normocephalic Eye: Present: EOMI, PERRL ENT: Present: mucous membranes moist - *Routine Neck Exam Present: supple. Absent: lymphadenopathy - *Routine Respiratory Exam Present: CTA bilaterally - *Routine Cardiovascular Exam Present: RRR - *Routine Abdominal Exam Present: soft, normoactive bowel sounds, tenderness in left abdomen - *Routine Extremities Exam Absent: cyanosis, clubbing, edema - *Routine Skin Exam Present: warm. Absent: rash - *Routine Neurological Exam Present: alert, oriented to person only Assessment and Plan (1) Abdominal abscess Status: Acute Category: Medical (2) Diverticulitis Status: Acute Category: Medical Code(s): K57.92 - Diverticulitis of intestine, part unspecified, without perforation or abscess without bleeding (3) UTI (urinary tract infection) Status: Acute Qualifiers: Urinary tract infection type: acute cystitis Hematuria presence: without hematuria Qualified Code(s): N30.00 - Acute cystitis without hematuria Category: Medical Code(s): N39.0 - Urinary tract infection, site not specified (4) Sepsis Status: Resolved Qualifiers: Category: Medical Code(s): A41.9 - Sepsis, unspecified organism (5) Dementia Status: Chronic Category: Medical Code(s): F03.90 - Unspecified dementia without behavioral disturbance - Assessment and plan all Dx Assessment and Plan for all problems:: 75-year-old female with diverticulitis and possible abscess. Continues to require admission and broad-spectrum antibiotics. Afebrile, showing improved clinical status. Surgery consulted, appreciate their continued guidance. Diet as ordered. Still having abdominal pain. Recommend continued admission for serial exams in the setting of abscess formation. Await culture results from blood and urine.
--- NOTE | 2021-03-07 15:22 | PC.NURSE ---
No acute changes. Alert to self only. Extremely [place]. Remains on room air. HR regular. Absent of edema. Abdomen soft, non-tender w/ active BS. Incontinent of large stool this AM. Continues to be incontinent of urine. Attends changed when soiled. Pt is total care. Turned and repositioned Q2H. Oral care provided. Multiple stage II ulcers noted to coccyx, dressing changed this shift. Appetite remains poor, pt is on clear liquids. She is currently resting w/ eyes closed, resp even/unlabored. Bed alarm in place. Call galdamez w/in reach.
[2021-03-07 15:39] VITALS: BP 93/48; PULSE 69; RESP 16; TEMP 37.1; O2SAT 90
[2021-03-07 19:55] VITALS: BP 93/49; PULSE 95; RESP 17; TEMP 36.9; O2SAT 91
[2021-03-07 23:59] VITALS: BP 90/47; PULSE 97; RESP 17; TEMP 37; O2SAT 93
[2021-03-08 04:12] VITALS: BP 104/53; PULSE 92; RESP 16; TEMP 36.4; O2SAT 91
[2021-03-08 05:13] VITALS: BMI 25.2
[2021-03-08 06:35] LABS: Basophils % 0.3 % (0.1-2.0); Eosinophils # 0.1 K/mm3 (0.0-0.4); Hemoglobin 9.6 g/dL (12.2-16.2); Lymphocytes # 2.4 K/mm3 (0.7-4.5); Lymphocytes % 19.3 % (10-50); Mean Corpuscular HGB Conc 29.9 g/dL (31.8-35.4); Mean Corpuscular Hemoglobin 30.1 pg (27.0-31.2); Mean Corpuscular Volume 100.5 fl (81-99); Mean Platelet Volume 7.2 fl (7.4-10.4); Monocytes # 0.9 K/mm3 (0.1-1.0); Monocytes % 7.1 % (1.7-9.3); Neutrophils # 9.1 K/mm3 (1.8-7.8); Neutrophils % 72.3 % (37.0-80.0); Platelet Count 324 K/mm3 (142-424); Red Blood Count 3.19 M/mm3 (4.20-5.40); Red Cell Distribution Width 17.6 % (11.5-17.5); White Blood Count 12.6 K/mm3 (4.8-10.8)
[2021-03-08 06:37] LABS: Chloride 103 mmol/L (98-107); Potassium 3.4 mmoL/L (3.5-5.1); Sodium 139 mmol/L (136-145)
[2021-03-08 06:40] LABS: Anion Gap 14.4 mEq/L (5-15); Blood Urea Nitrogen 9 mg/dl (7-17); Calcium 8.8 mg/dl (8.4-10.2); Carbon Dioxide 25 mmol/L (22.0-30.0); Creatinine Clearance Estimated 48 mL/min (50-200); Estimated Glomerular Filt Rate 97 ml/min (>60); GFR (African American) 117 ML/MIN (>60); Glucose 88 mg/dl (74-100); Magnesium 1.4 mg/dl (1.6-2.3)
--- NOTE | 2021-03-08 07:51 | HMH.ACPN2 ---
Internal Medicine - PN: Subj *Date: 03/08/21 *Time: 07:51 Interval history: Overall patient feels a little better but still notes that her belly hurts, does feel hungry however. Has had no fever, has had no vomiting, has had a couple of soft stools. Exam Vital signs and Labs for Last 24 Hours: Temp Pulse Resp BP Pulse Ox 97.6 F 92 H 16 104/53 L 91 L 03/08/21 04:12 03/08/21 04:12 03/08/21 04:12 03/08/21 04:12 03/08/21 04:12 Laboratory Results - last 24 hr 03/07/21 06:17: Total Counted 100, Neutrophils % (Manual) 76, Lymphocytes % (Manual) 19, Monocytes % (Manual) 4, Eosinophils % (Manual) 1, Platelet Estimate Normal, Hypochromasia 2+, Macrocytosis 2+ 03/08/21 06:15: WBC 12.6 H, RBC 3.19 L, Hgb 9.6 L, Hct 32.0 L, MCV 100.5 H, MCH 30.1, MCHC 29.9 L, RDW 17.6 H, Plt Count 324, MPV 7.2 L, Neut % (Auto) 72.3, Lymph % (Auto) 19.3, [place] % (Auto) 7.1, Eos % (Auto) 1.0, Baso % (Auto) 0.3, Neut # (Auto) 9.1 H, Lymph # (Auto) 2.4, [place] # (Auto) 0.9, Eos # (Auto) 0.1, Baso # (Auto) 0.0 03/08/21 06:15: Sodium 139, Potassium 3.4 L, Chloride 103, Carbon Dioxide 25, Anion Gap 14.4, BUN 9, Creatinine 0.60, Estimated Creat Clear 48, Estimated GFR 97, Est GFR ( Amer) 117, Glucose 88, Calcium 8.8, Magnesium 1.4 L I & O for Last 24 hours: Intake & Output 03/05/21 03/06/21 03/07/21 03/08/21 11:59 11:59 11:59 11:59 Intake Total 770 / 770 1030 / 1030 400 / 400 Output Total 0 / 0 Balance 770 / 770 1030 / 1030 400 / 400 Weight 120 lb 134 lb 7.712 oz 134 lb 7.712 oz 142 lb 2 oz Microbiology Reports for the Last 24 Hours: Microbiology 03/05/21 12:40 Blood - Abscess Blood Culture - Preliminary NO GROWTH AFTER 48 HOURS 03/05/21 11:40 Urine,Clean Catch Urine Culture - Preliminary Narrative: Very pleasant, talkative, lungs have good air movement, heart rate regular. Abdomen is soft but continues to have left lower quadrant tenderness without rebound or guarding. No abdominal bruising, distal extremities are without edema. Neurologic exam intact except for her hearing status Assessment and Plan (1) Abdominal abscess Status: Acute Category: Medical (2) Diverticulitis Status: Acute Category: Medical Code(s): K57.92 - Diverticulitis of intestine, part unspecified, without perforation or abscess without bleeding (3) UTI (urinary tract infection) Status: Acute Qualifiers: Urinary tract infection type: acute cystitis Hematuria presence: without hematuria Qualified Code(s): N30.00 - Acute cystitis without hematuria Category: Medical Code(s): N39.0 - Urinary tract infection, site not specified (4) Sepsis Status: Resolved Qualifiers: Category: Medical Code(s): A41.9 - Sepsis, unspecified organism (5) Dementia Status: Chronic Category: Medical Code(s): F03.90 - Unspecified dementia without behavioral disturbance - Assessment and plan all Dx Assessment and Plan for all problems:: Possible inflammatory response around the infection. Add Solu-Medrol today. Continue antibiotics given her improved white count. Await blood culture results. Advance diet cautiously, check CT scan tomorrow morning if improving will consider discharge back to shelter with p.o. antibiotics and follow-up at that institution.
[2021-03-08 08:00] VITALS: BP 113/54; PULSE 89; RESP 16; TEMP 36.8; O2SAT 95
--- NOTE | 2021-03-08 09:37 | DIET.NUTRFU ---
Nutritional assessment, IP/consult completed. Pt with severe malnutrition rt dementia with loss 13% body weight past 2m. She has consumed 25-50% of her meals on clear liquid diet. She was advanced to full liquids today, BID liquid supplements added to order.
--- NOTE | 2021-03-08 09:47 | P.PN_ITS ---
Internal Medicine - PN: Subj *Date: 03/08/21 *Time: 09:47 Exam Vital signs and Labs for Last 24 Hours: Temp Pulse Resp BP Pulse Ox 98.3 F 89 16 113/54 L 95 03/08/21 08:00 03/08/21 08:00 03/08/21 08:00 03/08/21 08:00 03/08/21 08:00 Laboratory Results - last 24 hr 03/05/21 11:42: Urine Color Straw, Urine Appearance Turbid, Urine pH 8.5, Ur Specific [place] 1.020, Urine Protein 2+, Urine Glucose (UA) Negative, Urine Ketones Trace, Urine Blood 3+, Urine Nitrate Positive, Urine Bilirubin Negative, Urine Urobilinogen 0.2, Ur Leukocyte Esterase 2+ A, Urine RBC 50-100, Urine WBC Tntc, Ur Squamous Epith Cells 5-10, Amorphous Sediment 3+, Urine Bacteria 2+ 03/08/21 06:15: WBC 12.6 H, RBC 3.19 L, Hgb 9.6 L, Hct 32.0 L, MCV 100.5 H, MCH 30.1, MCHC 29.9 L, RDW 17.6 H, Plt Count 324, MPV 7.2 L, Neut % (Auto) 72.3, Lymph % (Auto) 19.3, [place] % (Auto) 7.1, Eos % (Auto) 1.0, Baso % (Auto) 0.3, Neut # (Auto) 9.1 H, Lymph # (Auto) 2.4, [place] # (Auto) 0.9, Eos # (Auto) 0.1, Baso # (Auto) 0.0 03/08/21 06:15: Sodium 139, Potassium 3.4 L, Chloride 103, Carbon Dioxide 25, Anion Gap 14.4, BUN 9, Creatinine 0.60, Estimated Creat Clear 48, Estimated GFR 97, Est GFR ( Amer) 117, Glucose 88, Calcium 8.8, Magnesium 1.4 L I & O for Last 24 hours: Intake & Output 03/05/21 03/06/21 03/07/21 03/08/21 23:59 23:59 23:59 23:59 Intake Total 410 / 410 960 / 960 830 / 830 Output Total 0 / 0 Balance 410 / 410 960 / 960 830 / 830 Weight 59.421 kg 61 kg 61 kg 64.467 kg Microbiology Reports for the Last 24 Hours: Microbiology 03/05/21 11:40 Urine,Clean Catch Urine Culture - Preliminary Gram Negative Rods Gram Negative Rods#2 03/05/21 12:40 Blood - Abscess Blood Culture - Preliminary NO GROWTH AFTER 48 HOURS Assessment and Plan (1) Abdominal abscess Status: Acute Category: Medical (2) Diverticulitis Status: Acute Category: Medical Code(s): K57.92 - Diverticulitis of intestine, part unspecified, without perforation or abscess without bleeding (3) UTI (urinary tract infection) Status: Acute Qualifiers: Urinary tract infection type: acute cystitis Hematuria presence: without hematuria Qualified Code(s): N30.00 - Acute cystitis without hematuria Category: Medical Code(s): N39.0 - Urinary tract infection, site not specified (4) Sepsis Status: Resolved Qualifiers: Category: Medical Code(s): A41.9 - Sepsis, unspecified organism (5) Dementia Status: Chronic Category: Medical Code(s): F03.90 - Unspecified dementia without behavioral disturbance The patient's infection will respond to the chosen ABx?: Yes Is the patient receiving the right drug, dose, and route?: Yes Could a more targeted ABx be ordered?: No (GRAM - RODS IN URINE CX X2. AFEBRILE)
--- NOTE | 2021-03-08 13:07 | HMH.GSPN ---
Subjective Patient reports: no new complaints Narrative: Apparently has had small bowel movement. Progress Note: A&P (1) Abdominal abscess Status: Acute (2) Diverticulitis Status: Acute (3) UTI (urinary tract infection) Status: Acute (4) Sepsis Status: Resolved (5) Dementia Status: Chronic Assessment and Plan for All Diagnoses:: Plan is for repeat follow-up CT scan tomorrow. Pending findings possible completion of oral antibiotics as an outpatient Exam Vital signs and Labs for Last 24 Hours: Temp Pulse Resp BP Pulse Ox 98.3 F 89 16 113/54 L 95 03/08/21 08:00 03/08/21 08:00 03/08/21 08:00 03/08/21 08:00 03/08/21 08:00 Laboratory Results - last 24 hr 03/05/21 11:42: Urine Color Straw, Urine Appearance Turbid, Urine pH 8.5, Ur Specific [place] 1.020, Urine Protein 2+, Urine Glucose (UA) Negative, Urine Ketones Trace, Urine Blood 3+, Urine Nitrate Positive, Urine Bilirubin Negative, Urine Urobilinogen 0.2, Ur Leukocyte Esterase 2+ A, Urine RBC 50-100, Urine WBC Tntc, Ur Squamous Epith Cells 5-10, Amorphous Sediment 3+, Urine Bacteria 2+ 03/08/21 06:15: WBC 12.6 H, RBC 3.19 L, Hgb 9.6 L, Hct 32.0 L, MCV 100.5 H, MCH 30.1, MCHC 29.9 L, RDW 17.6 H, Plt Count 324, MPV 7.2 L, Neut % (Auto) 72.3, Lymph % (Auto) 19.3, [place] % (Auto) 7.1, Eos % (Auto) 1.0, Baso % (Auto) 0.3, Neut # (Auto) 9.1 H, Lymph # (Auto) 2.4, [place] # (Auto) 0.9, Eos # (Auto) 0.1, Baso # (Auto) 0.0 03/08/21 06:15: Sodium 139, Potassium 3.4 L, Chloride 103, Carbon Dioxide 25, Anion Gap 14.4, BUN 9, Creatinine 0.60, Estimated Creat Clear 48, Estimated GFR 97, Est GFR ( Amer) 117, Glucose 88, Calcium 8.8, Magnesium 1.4 L I & O for Last 24 hours: Intake & Output 03/06/21 03/07/21 03/08/21 03/09/21 11:59 11:59 11:59 11:59 Intake Total 770 / 770 1030 / 1030 420 / 420 60 / 60 Output Total 0 / 0 Balance 770 / 770 1030 / 1030 420 / 420 60 / 60 Weight 134 lb 7.712 oz 134 lb 7.712 oz 142 lb 2 oz Microbiology Reports for the Last 24 Hours: Microbiology 03/05/21 11:40 Urine,Clean Catch Urine Culture - Preliminary Gram Negative Rods Gram Negative Rods#2 03/05/21 12:40 Blood - Abscess Blood Culture - Preliminary NO GROWTH AFTER 48 HOURS - *Routine Abdominal Exam Present: soft Comments: Some tenderness without guarding or rebound the left lower quadrant
[2021-03-08 15:46] VITALS: BP 108/61; PULSE 88; RESP 16; TEMP 36.9; O2SAT 93
--- NOTE | 2021-03-08 16:26 | PC.WOUNDNOTE ---
patient has a stage one with various small open stage 2 areas surrounding the sacrum. Barrier cream applied as well as protective dressing. Patient's heels are blanchable but are red-- heel protectants applied and heels floated up on bed on pillows. will continue to asses
[2021-03-08 20:00] VITALS: BP 115/69; PULSE 78; RESP 17; TEMP 37; O2SAT 94; O2SAT 97
[2021-03-09 00:39] VITALS: BP 110/76; PULSE 69; RESP 16; TEMP 36.6; O2SAT 97
[2021-03-09 04:00] VITALS: BP 121/58; PULSE 76; RESP 16; TEMP 36.7; O2SAT 95
[2021-03-09 04:44] VITALS: BMI 25.2
--- NOTE | 2021-03-09 06:00 | CT_ITS ---
PROCEDURE INFORMATION: Exam: CT Abdomen And Pelvis Without And With Contrast Exam date and time: 03/09/2021 6:00 AM Age: 75 years old Clinical indication: Abdominal pain; Additional info: F/u colitis TECHNIQUE: Imaging protocol: Computed tomography of the abdomen and pelvis without and with contrast. Radiation optimization: All CT scans at this facility use at least one of these dose optimization techniques: automated exposure control; mA and/or kV adjustment per patient size (includes targeted exams where dose is matched to clinical indication); or iterative reconstruction. Contrast material: ISOVUE; Contrast volume: 75 ml; Contrast route: INTRAVENOUS (IV); COMPARISON: CT ABDOMEN PELVIS W CON 03/05/2021 10:43 AM FINDINGS: Diaphragm: Stable large hiatal hernia. Liver: Normal. No mass. Gallbladder and bile ducts: Normal. No calcified stones. No ductal dilation. Pancreas: Normal. No ductal dilation. Spleen: Normal. No splenomegaly. Adrenal glands: Normal. No mass. Kidneys and ureters: Normal. No hydronephrosis. Stomach and bowel: Essentially stable appearance of proximal sigmoid diverticulitis with small pericolic abscess when compared to 03/05/2021. Stable large amount of fecal material within the rectum. Appendix: No evidence of appendicitis. Intraperitoneal space: Unremarkable. No free air. No significant fluid collection. Vasculature: Atheromatous vascular calcification. Lymph nodes: Unremarkable. No enlarged lymph nodes. Urinary bladder: Unremarkable as visualized. Reproductive: Unremarkable as visualized. Bones/joints: Unremarkable. No acute fracture. Soft tissues: Unremarkable. IMPRESSION: Essentially stable appearance when compared to 03/05/2021 with attention paid to sigmoid diverticulitis and small pericolic abscess.
--- NOTE | 2021-03-09 06:33 | HMH.GSPN ---
Subjective Patient reports: no new complaints, still having pain Progress Note: A&P (1) Abdominal abscess Status: Acute (2) Diverticulitis Status: Acute Assessment and plan: Clinically stable on current antibiotic regimen. Follow-up morning labs Follow-up pending CT (3) UTI (urinary tract infection) Status: Acute (4) Sepsis Status: Resolved (5) Dementia Status: Chronic Exam Vital signs and Labs for Last 24 Hours: Temp Pulse Resp BP Pulse Ox 98.1 F 76 16 121/58 L 95 03/09/21 04:00 03/09/21 04:00 03/09/21 04:00 03/09/21 04:00 03/09/21 04:00 Laboratory Results - last 24 hr 03/05/21 11:42: Urine Color Straw, Urine Appearance Turbid, Urine pH 8.5, Ur Specific [place] 1.020, Urine Protein 2+, Urine Glucose (UA) Negative, Urine Ketones Trace, Urine Blood 3+, Urine Nitrate Positive, Urine Bilirubin Negative, Urine Urobilinogen 0.2, Ur Leukocyte Esterase 2+ A, Urine RBC 50-100, Urine WBC Tntc, Ur Squamous Epith Cells 5-10, Amorphous Sediment 3+, Urine Bacteria 2+ 03/08/21 06:15: WBC 12.6 H, RBC 3.19 L, Hgb 9.6 L, Hct 32.0 L, MCV 100.5 H, MCH 30.1, MCHC 29.9 L, RDW 17.6 H, Plt Count 324, MPV 7.2 L, Neut % (Auto) 72.3, Lymph % (Auto) 19.3, [place] % (Auto) 7.1, Eos % (Auto) 1.0, Baso % (Auto) 0.3, Neut # (Auto) 9.1 H, Lymph # (Auto) 2.4, [place] # (Auto) 0.9, Eos # (Auto) 0.1, Baso # (Auto) 0.0 03/08/21 06:15: Sodium 139, Potassium 3.4 L, Chloride 103, Carbon Dioxide 25, Anion Gap 14.4, BUN 9, Creatinine 0.60, Estimated Creat Clear 48, Estimated GFR 97, Est GFR ( Amer) 117, Glucose 88, Calcium 8.8, Magnesium 1.4 L I & O for Last 24 hours: Intake & Output 03/06/21 03/07/21 03/08/21 03/09/21 11:59 11:59 11:59 11:59 Intake Total 770 / 770 1030 / 1030 420 / 420 120 / 120 Output Total 0 / 0 Balance 770 / 770 1030 / 1030 420 / 420 119 / 119 Weight 134 lb 7.712 oz 134 lb 7.712 oz 142 lb 2 oz 142 lb 1 oz Microbiology Reports for the Last 24 Hours: Microbiology 03/05/21 11:40 Urine,Clean Catch Urine Culture - Preliminary Gram Negative Rods Gram Negative Rods#2 - Constitutional no acute distress - *Routine Respiratory Exam Absent: respiratory distress - *Routine Cardiovascular Exam Present: RRR - *Routine Abdominal Exam Present: soft, tenderness
--- NOTE | 2021-03-09 06:36 | PC.NURSE ---
patient off floor to CT at this time.
--- NOTE | 2021-03-09 06:52 | PC.NURSE ---
patient back to floor from CT at this time
[2021-03-09 06:57] LABS: Basophils % 0.1 % (0.1-2.0); Hematocrit 32.3 % (37.0-47.0); Hemoglobin 9.7 g/dL (12.2-16.2); Lymphocytes # 1.1 K/mm3 (0.7-4.5); Mean Corpuscular HGB Conc 30.1 g/dL (31.8-35.4); Mean Corpuscular Hemoglobin 30.2 pg (27.0-31.2); Mean Corpuscular Volume 100.3 fl (81-99); Mean Platelet Volume 7.2 fl (7.4-10.4); Monocytes # 0.3 K/mm3 (0.1-1.0); Monocytes % 2.3 % (1.7-9.3); Neutrophils # 10.3 K/mm3 (1.8-7.8); Neutrophils % 88.6 % (37.0-80.0); Platelet Count 398 K/mm3 (142-424); Red Blood Count 3.22 M/mm3 (4.20-5.40); Red Cell Distribution Width 17.5 % (11.5-17.5); White Blood Count 11.6 K/mm3 (4.8-10.8)
[2021-03-09 07:00] LABS: MANUAL DIFFERENTIAL MANUAL DIFFERENTIAL (MANUAL DIFF)
[2021-03-09 07:02] LABS: Chloride 103 mmol/L (98-107); Potassium 3.9 mmoL/L (3.5-5.1); Sodium 140 mmol/L (136-145)
[2021-03-09 07:04] LABS: Blood Urea Nitrogen 12 mg/dl (7-17); Creatinine Clearance Estimated 48 mL/min (50-200); Estimated Glomerular Filt Rate 120 ml/min (>60); GFR (African American) 145 ML/MIN (>60)
[2021-03-09 07:05] LABS: Alanine Aminotransferase 24 U/L (12-78); Albumin Level 2.7 g/dl (3.5-5.0); Albumin/Globulin Ratio 0.8 (1.1-1.8); Alkaline Phosphatase 84 U/L (38-126); Anion Gap 16.9 mEq/L (5-15); Aspartate Amino Transferase 26 U/L (14-36); Bilirubin,Total < 0.1 mg/dl (0.2-1.3); Calcium 8.9 mg/dl (8.4-10.2); Carbon Dioxide 24 mmol/L (22.0-30.0); Globulin 3.6 g/dL (1.3-3.2); Glucose 140 mg/dl (74-100); Total Protein,Serum 6.3 g/dl (6.3-8.2)
[2021-03-09 07:40] LABS: Acanthocytes 1+; Anisocytosis 1+; Lymphocytes % 9 % (10-50); Macrocytosis 1+; Monocytes % 3 % (2-9); Neutrophils % 88 % (42-76); Platelet Estimate Normal; Poikilocytosis 1+; Stomatocytes 1+; Total Cells Counted 100
[2021-03-09 08:00] VITALS: BP 105/54; PULSE 83; RESP 18; TEMP 36.9; O2SAT 89
--- NOTE | 2021-03-09 08:33 | HMH.DCSUM ---
General - General Admission date:: 03/05/21 Discharge date: 03/09/21 HPI HPI: Description of Symptoms (Recalled from ER Triage Doc. by RN): From nurse Zelda pt has hx of demenia and anxiety. They said she has been vomiting for the last two days. he blood pressure was 98/65 before she left. She said that she normally has a bowel movement regularly and has not in the last two days. Pt states that her abdomen is hurting. Pt is very repeatitive with her conversation. - History of Present Illness HPI narrative: hx of demenia and anxiety. They said she has been vomiting non bloody non bilious emesis for the last two days. Her blood pressure was 98/65 before she left. She said that she normally has a bowel movement regularly and has not in the last two days. Pt states that her abdomen is hurting. Pt is very repeatitive with her conversation, which group home reports is per baseline. No fevers, chills, bowel changes per nursing facility. Above note per ER. Work-up in the ER revealed leukocytosis, evidence of urinary tract infection and CT scan showing diverticulitis with thickened colon and possible abscess formation. Admitted to hospital for broad-spectrum antibiotics. Hospital Course Hospital Course: Patient was admitted and placed on IV antibiotics. Improved nicely with these with improving white counts and less pain. She continued to have some pain on exam with deep palpation throughout her hospital course but improved. Blood cultures were negative, did grow Klebsiella and Proteus from urine, but sensitive to antibiotics. Did well with antibiotics and steroids for inflammation and was able to be transitioned to a full liquid diet over the last day or so with no worsening of her belly pain. This morning her exam has stabilized, she is much more alert and eating well by herself. Plan will be to discharge back to her group home. She will be on cefdinir 300 twice daily for 7 days and Flagyl 500 3 times daily for 7 days. I would like her to have a CT scan with p.o. and IV contrast in 7 days at [facility] to follow-up her colitis/possible abscess. Her diet needs to be full liquid, advance as tolerated to low-fat/low residue diet. Please note that she will need a CBC and a BMP on Saturday, March 13. Objective Vital signs: Temp Pulse Resp BP Pulse Ox 98.1 F 76 16 121/58 L 95 03/09/21 04:00 03/09/21 04:00 03/09/21 04:00 03/09/21 04:00 03/09/21 04:00 no acute distress - *Routine HEENT Exam Head: Present: normocephalic Eye: Present: EOMI, PERRL ENT: Present: mucous membranes moist - *Routine Neck Exam Present: supple - *Routine Respiratory Exam Present: CTA bilaterally - *Routine Cardiovascular Exam Present: RRR - *Routine Abdominal Exam Present: soft, normoactive bowel sounds, tenderness Comments: Very minimal left lower quadrant tenderness but no rebound, vastly improved over admission - *Routine Extremities Exam Absent: cyanosis, clubbing, edema - *Routine Skin Exam Present: warm. Absent: rash - Detailed Eye Exam Eyelids: Bilateral normal inspection Results Labs on day of discharge: Labs from last 24 hours 03/09/21 03/09/21 06:24 06:24 WBC 11.6 H RBC 3.22 L Hgb 9.7 L Hct 32.3 L MCV 100.3 H MCH 30.2 MCHC 30.1 L RDW 17.5 Plt Count 398 MPV 7.2 L Neut % (Auto) 88.6 H Lymph % (Auto) 9.0 L [place] % (Auto) 2.3 Eos % (Auto) 0.0 L Baso % (Auto) 0.1 Neut # (Auto) 10.3 H Lymph # (Auto) 1.1 [place] # (Auto) 0.3 Eos # (Auto) 0.0 Baso # (Auto) 0.0 Total Counted 100 Neutrophils % (Manual) 88 H Lymphocytes % (Manual) 9 L Monocytes % (Manual) 3 Platelet Estimate Normal Poikilocytosis 1+ Anisocytosis 1+ Macrocytosis 1+ Stomatocytes 1+ Acanthocytes (Sp[place]) 1+ Sodium 140 Potassium 3.9 Chloride 103 Carbon Dioxide 24 Anion Gap 16.9 H BUN 12 D Creatinine 0.50 L Estima
[2021-03-09 09:33] VITALS: O2SAT 94
[2021-03-09 10:27] LABS: Coronavirus 19, PCR Not Detected (NotDetected); Influenza A, PCR Not Detected (NotDetected); Influenza B, PCR Not Detected (NotDetected)
== END 2021-03-09 14:40 | DRG 872 ==
LOC: ER 12:19 → 2ND 13:13
PROVIDERS: Admitting Provider Internal Medicine Adolescent Medicine; Emergency Provider Student in an Organized Health Care Education/Training Program; PCP Internal Medicine Adolescent Medicine; Visit Provider Internal Medicine Adolescent Medicine
DX: A41.9 Sepsis, unspecified organism (principal); K57.20 Diverticulitis of large intestine with perforation and abscess without bleeding; N39.0 Urinary tract infection, site not specified; Z20.822 Contact with and (suspected) exposure to COVID-19; E03.9 Hypothyroidism, unspecified; F03.90 Unspecified dementia, unspecified severity, without behavioral disturbance, psychotic disturbance, mood disturbance, and anxiety; F41.9 Anxiety disorder, unspecified
CPT/HCPCS: 36415; 74177; 74178; 80048; 80053; 81001; 83605; 83690; 83735; 85007; 85025; 87040; 87086; 87088; 87186; 96365; 96367; 96375; 99284; C9803; J2405; J2543; Q9967; U0003; U0005

== ENCOUNTER → 2021-03-17 10:27 | Outpatient (CLI) | payer MEDICARE, MEDICAID, SELFPAY ==
--- NOTE | 2021-03-17 10:32 | CT_ITS ---
PROCEDURE: CT ABDOMEN WO/W CON CLINICAL HISTORY: ABD ABSCESS COMPARISON: CT CT ABDOMEN PELVIS W CON from 03/05/[address] ABDOMEN PELVIS WO/W CON from 03/09/2021 TECHNIQUE: Axial images obtained with sagittal and coronal reformats. All CT scans at the facility use one or more dose reduction, viz: automated exposure control, ma/kV adjustment per patient size (including targeted exams where dose is matched to indication, i.e. head), or iterative reconstruction technique. FINDINGS: The entire fundus and half of the gastric body are located within the thoracic cavity, having herniated through a large hiatal hernia. There is twisting of the stomach in this region and correlation for symptoms of gastric volvulus is recommended. Lung bases. There is severe kyphoscoliosis. Liver, gallbladder, pancreas appear unremarkable. Bilateral adrenals appear unremarkable. Bilateral kidneys appear unremarkable. Cannot be evaluated in their entirety because the scan does not continue through the pelvis. The visualized extent of the small bowel is is unremarkable however the entire small bowel is not visualized because of the pelvis was not scanned. The visualized extent of the cecum and transverse colon is dilated with liquid presumably liquid stool there is diverticulosis of the descending colon. There is sigmoid diverticulosis. Again identified is mesenteric tethering in the left lower quadrant with the mesentery containing foci of gas and soft tissue density material possibly of fibrotic change or phlegmon. There is a tiny 19 millimeter abscess in left lower quadrant (decreased in size from prior study where it measured 2.5 cm). There is severe abnormal wall thickening of the sigmoid colon. There is a large volume of stool in the visualized extent of the rectum. Appendix is not visualized. There is mild reactive lymphadenopathy in the left lower quadrant in the region of the mesenteric matting. There is severe calcific atherosclerosis of the aorta and branch vessels. There is thoracolumbar spondylosis. IMPRESSION: 1. In this patient with presumed perforated sigmoid diverticulitis with left lower quadrant abscess, there has been interval decrease in size of the left lower quadrant abscess (previously 2.5 centimeters now 19 millimeters). 2. Stable mesenteric matting in the left lower quadrant, presumably secondary to reactive fibrosis though in the setting of a perforated colonic malignancy intraperitoneal spread of disease could have a similar appearance. 3. Entire colon and small bowel are not visualized due to this being a CT of the abdomen only. 4. Diverticulosis of descending colon and sigmoid. 5. Severe abnormal wall thickening of the sigmoid colon, which could relate to diverticulitis however colonic neoplasm is not excluded. 6. Gastric fundus and half of gastric body are located within thoracic cavity, having herniated through large hiatal hernia. This places the patient at risk for gastric volvulus. Overall these findings likely represent improving perforated sigmoid diverticulitis, although a perforated sigmoid neoplasm could have an identical appearance. If there is ongoing clinical improvement, CT abdomen and pelvis with contrast may be repeated in 1 month to ensure resolution and, if inflammatory changes resolved, colonoscopy is strongly recommended to rule out perforated colonic neoplasm. Dictated by: Claire oCncepcion MD 03/17/2021 13:20 Claire Concepicon MD in [place] 03/17/2021 13:20
== END ==
PROVIDERS: PCP Internal Medicine Adolescent Medicine; Visit Provider Internal Medicine Adolescent Medicine
DX: L02.211 Cutaneous abscess of abdominal wall (principal)
CPT/HCPCS: 74170; Q9967

== ENCOUNTER → 2021-04-11 08:53 | Outpatient (CLI) | payer MEDICARE, MEDICAID, SELFPAY ==
[2021-04-11 08:58] LABS: Microscopic, Urine URINE MICROSCOPIC (MICROSCOPIC)
[2021-04-11 09:02] LABS: Appearance,Urine CLEAR (Clear); Blood, Urine Negative (Negative); Color,Urine YELLOW (Yellow); Glucose,Urine (UA) Negative (Negative); Ketones,Urine 1+ (Negative); Leukocyte Esterase,Urine Negative (Negative); Nitrate,Urine Negative (Negative); Protein,Urine Negative (Negative); Urobilinogen,Urine 0.2 EU/dl (0.2)
[2021-04-11 09:03] LABS: Bilirubin,Urine 2+ (Negative)
== END ==
PROVIDERS: Visit Provider Nurse Practitioner Family
DX: N39.0 Urinary tract infection, site not specified (principal)
CPT/HCPCS: 81001

== ENCOUNTER → 2021-04-21 16:36 | Outpatient (CLI) | payer MEDICARE, MEDICAID, SELFPAY ==
[2021-04-21 17:03] LABS: Basophils # 0.1 K/mm3 (0-0.2); Basophils % 0.7 % (0.1-2.0); Eosinophils % 0.2 % (0.1-12.0); Hematocrit 36.4 % (37.0-47.0); Hemoglobin 11.5 g/dL (12.2-16.2); Lymphocytes # 2.8 K/mm3 (0.7-4.5); Lymphocytes % 19.6 % (10-50); Mean Corpuscular HGB Conc 31.6 g/dL (31.8-35.4); Mean Corpuscular Volume 101.4 fl (81-99); Mean Platelet Volume 8.9 fl (7.4-10.4); Monocytes # 1.3 K/mm3 (0.1-1.0); Monocytes % 8.9 % (1.7-9.3); Neutrophils # 9.9 K/mm3 (1.8-7.8); Neutrophils % 70.5 % (37.0-80.0); Platelet Count 540 K/mm3 (142-424); Red Blood Count 3.59 M/mm3 (4.20-5.40); Red Cell Distribution Width 15.7 % (11.5-17.5)
[2021-04-21 17:20] LABS: Chloride 90 mmol/L (98-107); Sodium 134 mmol/L (136-145)
[2021-04-21 17:23] LABS: Anion Gap 8.6 mEq/L (5-15); Blood Urea Nitrogen 23 mg/dl (7-17); Calcium 8.7 mg/dl (8.4-10.2); Carbon Dioxide 38 mmol/L (22.0-30.0); Estimated Glomerular Filt Rate 120 ml/min (>60); GFR (African American) 145 ML/MIN (>60); Glucose 107 mg/dl (74-100)
[2021-04-21 17:27] LABS: Potassium 2.6 mmoL/L (3.5-5.1)
== END ==
PROVIDERS: Visit Provider Nurse Practitioner Family
DX: E86.0 Dehydration (principal)
CPT/HCPCS: 80048; 85025

== ENCOUNTER → 2021-04-24 09:12 | Outpatient (CLI) | payer MEDICARE, MEDICAID, SELFPAY ==
[2021-04-24 09:35] LABS: Chloride 97 mmol/L (98-107); Potassium 3.8 mmoL/L (3.5-5.1); Sodium 132 mmol/L (136-145)
[2021-04-24 09:38] LABS: Anion Gap 8.8 mEq/L (5-15); Blood Urea Nitrogen 12 mg/dl (7-17); Carbon Dioxide 30 mmol/L (22.0-30.0); Estimated Glomerular Filt Rate 155 ml/min (>60); GFR (African American) 187 ML/MIN (>60); Glucose 113 mg/dl (74-100)
[2021-04-24 09:39] LABS: Calcium 8.4 mg/dl (8.4-10.2)
[2021-04-24 19:07] LABS: Microscopic, Urine URINE MICROSCOPIC (MICROSCOPIC)
[2021-04-24 19:18] LABS: Appearance,Urine CLOUDY (Clear); Bilirubin,Urine Negative (Negative); Blood, Urine 1+ (Negative); Color,Urine YELLOW (Yellow); Glucose,Urine (UA) Negative (Negative); Ketones,Urine Negative (Negative); Leukocyte Esterase,Urine 3+ (Negative); Nitrate,Urine Negative (Negative); Protein,Urine 1+ (Negative); Specific Gravity, Urine 1.015 (1.005-1.030); Urobilinogen,Urine 0.2 EU/dl (0.2)
[2021-04-24 19:48] LABS: Bacteria,Urine 4+ /lpf; WBC,Urine 20-50 #/hpf (0-3)
== END ==
PROVIDERS: Visit Provider Internal Medicine Adolescent Medicine
DX: N39.0 Urinary tract infection, site not specified (principal); B96.4 Proteus (mirabilis) (morganii) as the cause of diseases classified elsewhere
CPT/HCPCS: 80048; 81001; 87086; 87088; 87186